=== PATIENT | female | born 1985 | race Caucasian/White ===

== ENCOUNTER 2016-05-16 20:24 | Emergency (ER) | payer OTHER ==
--- NOTE | 2016-05-16 21:38 | ED CLINICAL REPORT ---
Clinical Report - Physicians/Mid Levels [facility] [address] [place] [address] 05/16/2016 20:24 Patient: AMARIS WALKER [facility]#: [id number] Time Seen: 20:39; initial patient contact, initial documentation, patient care assumed. Historian- patient. HISTORY OF PRESENT ILLNESS Chief Complaint: PARESTHESIA. This started about 3 days ago and is still present. The patient has had new onset of localized numbness of the right face (mild) and left face (mild). No tingling, impaired speech or swallowing, visual disturbance or recent fall. No difficulty walking. (none). No dizziness, altered mental status, seizure or blackouts. Usually is alert and oriented X3 and has normal mobility. Similar symptoms previously: Frequently, as bad. ( states this started last year around July, and she hasn't had any issues in a few mos, was seeing neurologist, next appt is in may). Recent medical care: The patient was seen recently in the office. ( saw pcp 04/29, blood work and exam normal). REVIEW OF SYSTEMS No fever, headache, head injury, chest pain or difficulty breathing. No diarrhea or vomiting. All systems otherwise negative, except as recorded above. PAST HISTORY See nurses notes. ( PROBLEMS: Migraine Headache. Neurological Disease. Paresthesia. Tension-Type Headache. Headache. Atypical Chest Pain. Palpitations. Hyperventilation. ADHD - Attention Deficit Hyperactivity Disorder. Hypothyroidism. Fibromyalgia. Anxiety Reaction. --20:37 Sheriff John, R.N.). SOCIAL HISTORY Never smoker. Occasional alcohol use. No drug use. No recent travel. Is a local resident. FAMILY HISTORY Negative. ADDITIONAL NOTES The nursing notes have been reviewed with agreement regarding the chief complaint, HPI, ROS, PMH and patient medications and allergies. PHYSICAL EXAM Vital Signs: 05/16/2016 20:33 BP: 138/85. HR: 69. RR: 18. O2 saturation: 100%. Temp: 97.7 F. Pain level now: 8/10. Have been reviewed as normal and appear to be correct. Appearance: Alert. No acute distress. Head: Head atraumatic. Eyes: Pupils equal, round and reactive to light. ENT: Normal ENT inspection. Airway intact. Pharynx normal. Neck: Normal inspection. Neck supple. CVS: Normal heart rate and rhythm. Heart sounds normal. Pulses normal. Respiratory: No respiratory distress. Breath sounds normal. Back: Normal inspection. Skin: Skin warm and dry. Normal skin color. No rash. Normal skin turgor. Extremities: Extremities exhibit normal ROM. No lower extremity edema. Neuro: Alert. Oriented X 3. Mood/affect normal. Speech normal. Cranial nerves normal (as tested). No cerebellar findings. No motor deficit. No sensory deficit. Reflexes normal. LABS, X-RAYS, AND EKG Laboratory Tests: CBC w Diff: (PATRICK: 05/16/2016 21:10) ( [facility] Final results Test Result Flag Units (Reference) WHITE BLOOD COUNT 10.5 K/uL (4.5-11.5) RED BLOOD COUNT 4.76 M/uL (4.00-5.20) HEMOGLOBIN 12.8 gm/dL (12.0-16.0) HEMATOCRIT 38.9 % (36.0-46.0) MEAN CELL VOLUME 82 fL (80-100) MEAN CORPUSCULAR HGB 27 pg (26-34) MEAN CORPUSCULAR HGB CONC 33 g/dL (31-37) RED CELL DISTRIBUTION WIDTH 13.1 % (11.6-14.8) PLATELET COUNT 342 K/uL (150-400) NEUTROPHIL % 43.7 L % (50-75) LYMPH % 42.4 H % (25-40) MONO % 9.0 % (3-14) EOSINOPHIL % 3.1 % (0-4) BASOPHIL % 1.8 % (0-2) CMP: (PATRICK: 05/16/2016 21:10) ( MsgRcvd 05/16/2016 21:32) Final results Test Result Flag Units (Reference) GLUCOSE 89 mg/dL (70-110) BUN 13 mg/dL (7-18) CREATININE 0.8 mg/dL (0.6-1.3) Estimated GFR >60 mL/min Estimated GFR- >60 mL/min Note: Persistent reduction over 3 months in eGFR<60 mL/min/1.73 m2 defines CKD. Patients with eGFR values>=60 mL/min/1.73 m2 may also have CKD if evidence ofpersistent proteinuria. Additional information may be foundat www.kidney.org. SODIUM 135 L mmol/L (136-145) POTASSIUM 3.8 mmol/L (3.5-5.1) CHLORIDE 106 mmol/L (98-107) CARBON DIOXIDE 29 mmol/L (21-32) CALCIUM 8.6 mg/dL (8.5-10.1) TOTAL PROTEIN 7.3 g/dL (6.4-8.2) ALBUMIN 3.6 g/dL (3.3-5.0) BILIRUBIN, TOTAL 0.2 mg/dL (0.0-1.0) ALKALINE PHOSPHATASE 66 U/L (46-116) AST (SGOT) 19 U/L (15-37) ALT (SGPT) 35 U/L (12-78) . PROGRESS AND PROCEDURES Course of Care: 21:04 05/16/16. pt has refugio for some narcs, #8 er visits for non emergent issues and mental health issues including suicide ideations, see report for full details tx options discussed and pt would like to try some meds, maybe some steroids, and diuretic, since those meds might have helped last time. Patient counseled in person regarding the patient's stable condition, test results and diagnosis. 21:37. Differential Diagnosis: Other possible considerations: substance abuse, thyroid disease, trigeminal neuralgia, tia, brain tumor, cva, electrolyte imbalance. Above considerations are based on history, physical exam, reassessment and X-Ray data. Differential diagnosis was discussed with patient. Disposition: Discharged home in good and unchanged condition (21:38). Condition: good and stable. CLINICAL IMPRESSION Paresthesia INSTRUCTIONS Warnings: GENERAL WARNINGS: Return or contact your physician immediately if your condition worsens or changes unexpectedly, if not improving as expected, or if other problems arise. Specifically return if problem worsens. Prescription Medications: Medrol Dosepak: take according to package directions. Dispense one (1) dosepak. No refills. Substitution is permissible. HCTZ 25 mg: Take 1 orally every 24 hours. Dispense fifteen (15). No refills. Follow-up: Follow up with a neurologist as scheduled even if well. Reason for referral: or sooner if able. Summary of care provided to patient. Understanding of the discharge instructions verbalized by patient. (Electronically signed by Elvira Dillon A.R.N.P. 05/16/2016 23:30)
--- NOTE | 2016-05-16 21:38 | ED ORDER SUMMARY ---
..... Patient: AMARIS WALKER OrderSheet [facility] VisitID: [id number] [address] [place] [address] 30y, F Registration Date/Time: 05/16/2016 ORDER SHEET Weight: 61.2 kg (stated) Allergies: ADHESIVES, Penicillins GENERAL ORDERS: CBC w Diff Urgent (21:01 05/16/2016 HBivens A.R.N.P.) (Ack 21:03 IJurca ER Tech1) (Sent 21:09 IJurca ER Tech1) (5:08 JRomanelli R.N.) CMP Urgent (21:01 05/16/2016 HBivens A.R.N.P.) (Ack 21:03 IJurca ER Tech1) (Sent 21:09 IJurca ER Tech1) (5:08 JRomanelli R.N.) MEDICATION ORDERS: IV FLUIDS: ORDER SHEET NOTES: [Electronically signed by Elvira DillonR.N.P. (23:30 05/16/2016)] [Electronically signed by Andrew Olmedo R.N. (05:08 05/17/2016)] [Electronically locked/signed by Andrew Olmedo R.N. (05:08 05/17/2016)]
--- NOTE | 2016-05-16 21:38 | ED NURSING NOTES ---
Clinical Report - Nurses [place] [address] [place] [address] 05/16/2016 20:24 Patient: AMARIS WALKER TRIAGE Triage time 20:34. Chief Complaint: RIGHT EAR PAIN and LEFT EAR PAIN. --20:39 Sheriff Lopez R.N. 20:33 05/16/16. BP: 138/85. HR: 69. RR: 18. O2 saturation: 100%. Temp: 97.7 F. Pain level now: 10/08. --20:39 Sheriff Lopez R.N. 20:33 05/16/16. BP: 138/85. HR: 69. RR: 18. O2 saturation: 100%. Temp: 97.7 F. Pain level now: 10/08. --20:39 Sheriff Lopez R.N. Weight: 61.2 kg stated. Height/Length: 65 inches Per Patient. BMI: 22.5. --20:32 Sheriff Lopez R.N. Medications ClonazePAM Oral. Levothyroxine Sodium Oral. --20:36 Sheriff Lopez R.N. Omeprazole Oral 20 mg, daily. --20:36 Sheriff Lopez R.N. Allergies ADHESIVES. Penicillins. --20:36 Sheriff Lopez R.N. History Arrived by private vehicle. Historian: patient. Unaccompanied. Onset. (3 days ago). ( Facial numbness and bilateral eye pressures.). 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 PAST MEDICAL HX: Immunizations: up-to-date. SOCIAL HX: Smoker- current status unknown. Occasional alcohol use. No drug use. FALL RISK ASSESSMENT: Fall risk assessment completed. No fall risk identified. NUTRITIONAL RISK ASSESSMENT: The nutritional risk assessment revealed no deficiencies. FUNCTIONAL ASSESSMENT: Functional assessment: no impairments noted. LEARNING NEEDS ASSESSMENT: The learning needs assessment revealed no barriers. SKIN INTEGRITY ASSESSMENT: Skin integrity risk assessment completed. No skin integrity risk identified. --20:39 Sheriff Lpoez R.N. PROBLEMS: Migraine Headache. Neurological Disease. Paresthesia. Tension-Type Headache. Headache. Atypical Chest Pain. Palpitations. Hyperventilation. ADHD - Attention Deficit Hyperactivity Disorder. Hypothyroidism. Fibromyalgia. Anxiety Reaction. --20:37 Sheriff Lopez R.N. PHYSICAL ASSESSMENT GENERAL / NEURO / PSYCH: Alert. HEENT: No facial asymmetry noted. Right ear within normal limits. Left ear within normal limits. RESPIRATORY: Respirations not labored. CVS: Capillary refill less than 2 seconds. SKIN: Skin is warm and dry. --20:39 Sheriff Lopez R.N. Ambulatory to room. --20:39 Sheriff Lopez R.N. NURSING PROGRESS NOTES Head of bed elevated. Two patient identifiers checked. Call light placed in reach. Side rails up x 2. Bed placed in lowest position. Brakes of bed on. Patient ready for evaluation- chart flagged. --20:40 Sheriff Lopez R.N. DISPOSITION / DISCHARGE 21:45 05/16/16. BP: 117/71. HR: 77. RR: 16. O2 saturation: 100% on room air. Temp: 97.9 F (oral). Pain level now: 210. Additional comments: facial pain. --05:02 Andrew Olmedo R.N. Departure time: 0. --05:02 Andrew Olmedo R.N. 21:50. Condition at departure: improved. No learning barriers present. Discharge instructions provided and reviewed with the patient. Reviewed medication(s) (prescription given to pt). Reviewed referral to family practice. Patient verbalized understanding. Written instructions provided in Slovak. The patient was discharged by the physician. She was discharged home and unaccompanied at time of discharge. She left the Emergency Department ambulatory and via private vehicle. Patient driving. --05:07 Andrew Olmedo R.N. Locked/Released at 05/17/2016 5:08 by Andrew Olmedo R.N.
--- NOTE | 2016-05-16 21:38 | ED ORDER SUMMARY ---
..... Patient: AMARIS WALKER OrderSheet [facility] VisitID: [id number] [address] [place] [address] 30y, F Registration Date/Time: 05/16/2016 ORDER SHEET Weight: 61.2 kg (stated) Allergies: ADHESIVES, Penicillins GENERAL ORDERS: CBC w Diff Urgent (21:01 05/16/2016 HBivens A.R.N.P.) (Ack 21:03 IJurca ER Tech1) (Sent 21:09 IJurca ER Tech1) (5:08 JRomanelli R.N.) CMP Urgent (21:01 05/16/2016 HBivens A.R.N.P.) (Ack 21:03 IJurca ER Tech1) (Sent 21:09 IJurca ER Tech1) (5:08 JRomanelli R.N.) MEDICATION ORDERS: IV FLUIDS: ORDER SHEET NOTES: [Electronically signed by Elvira DillonR.N.P. (23:30 05/16/2016)] [Electronically signed by Andrew Olmedo R.N. (05:08 05/17/2016)] [Electronically locked/signed by Andrew Olmedo R.N. (05:08 05/17/2016)]
--- NOTE | 2016-05-16 21:38 | ED NURSING NOTES ---
Clinical Report - Nurses [place] [address] [place] [address] 05/16/2016 20:24 Patient: AMARIS WALKER TRIAGE Triage time 20:34. Chief Complaint: RIGHT EAR PAIN and LEFT EAR PAIN. --20:39 Sheriff Lopez R.N. 20:33 05/16/16. BP: 138/85. HR: 69. RR: 18. O2 saturation: 100%. Temp: 97.7 F. Pain level now: 10/08. --20:39 Sheriff Lopez R.N. 20:33 05/16/16. BP: 138/85. HR: 69. RR: 18. O2 saturation: 100%. Temp: 97.7 F. Pain level now: 10/08. --20:39 Sheriff Lopez R.N. Weight: 61.2 kg stated. Height/Length: 65 inches Per Patient. BMI: 22.5. --20:32 Sheriff Lopez R.N. Medications ClonazePAM Oral. Levothyroxine Sodium Oral. --20:36 Sheriff Lopez R.N. Omeprazole Oral 20 mg, daily. --20:36 Sheriff Lopez R.N. Allergies ADHESIVES. Penicillins. --20:36 Sheriff Lopez R.N. History Arrived by private vehicle. Historian: patient. Unaccompanied. Onset. (3 days ago). ( Facial numbness and bilateral eye pressures.). 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 PAST MEDICAL HX: Immunizations: up-to-date. SOCIAL HX: Smoker- current status unknown. Occasional alcohol use. No drug use. FALL RISK ASSESSMENT: Fall risk assessment completed. No fall risk identified. NUTRITIONAL RISK ASSESSMENT: The nutritional risk assessment revealed no deficiencies. FUNCTIONAL ASSESSMENT: Functional assessment: no impairments noted. LEARNING NEEDS ASSESSMENT: The learning needs assessment revealed no barriers. SKIN INTEGRITY ASSESSMENT: Skin integrity risk assessment completed. No skin integrity risk identified. --20:39 Sheriff Lopez R.N. PROBLEMS: Migraine Headache. Neurological Disease. Paresthesia. Tension-Type Headache. Headache. Atypical Chest Pain. Palpitations. Hyperventilation. ADHD - Attention Deficit Hyperactivity Disorder. Hypothyroidism. Fibromyalgia. Anxiety Reaction. --20:37 Sheriff Lopez R.N. PHYSICAL ASSESSMENT GENERAL / NEURO / PSYCH: Alert. HEENT: No facial asymmetry noted. Right ear within normal limits. Left ear within normal limits. RESPIRATORY: Respirations not labored. CVS: Capillary refill less than 2 seconds. SKIN: Skin is warm and dry. --20:39 Sheriff Lopez R.N. Ambulatory to room. --20:39 Sheriff Lopez R.N. NURSING PROGRESS NOTES Head of bed elevated. Two patient identifiers checked. Call light placed in reach. Side rails up x 2. Bed placed in lowest position. Brakes of bed on. Patient ready for evaluation- chart flagged. --20:40 Sheriff Lopez R.N. DISPOSITION / DISCHARGE 21:45 05/16/16. BP: 117/71. HR: 77. RR: 16. O2 saturation: 100% on room air. Temp: 97.9 F (oral). Pain level now: 210. Additional comments: facial pain. --05:02 Andrew Olmedo R.N. Departure time: 0. --05:02 Andrew Olmedo R.N. 21:50. Condition at departure: improved. No learning barriers present. Discharge instructions provided and reviewed with the patient. Reviewed medication(s) (prescription given to pt). Reviewed referral to family practice. Patient verbalized understanding. Written instructions provided in Icelandic. The patient was discharged by the physician. She was discharged home and unaccompanied at time of discharge. She left the Emergency Department ambulatory and via private vehicle. Patient driving. --05:07 Andrew Olmedo R.N. Locked/Released at 05/17/2016 5:08 by Andrew Olmedo R.N.
--- NOTE | 2016-05-17 05:08 | ED DISCHARGE INSTRUCTIONS ---
Patient: AMARIS WALKER General Instructions [facility] VisitID: [id number] [address] [place] [address] 30y, F Registration Date/Time: 05/16/2016 Paresthesia INSTRUCTIONS Warnings: GENERAL WARNINGS: Return or contact your physician immediately if your condition worsens or changes unexpectedly, if not improving as expected, or if other problems arise. Specifically return if problem worsens. Prescription Medications: Medrol Dosepak: take according to package directions. Dispense one (1) dosepak. No refills. Substitution is permissible. HCTZ 25 mg: Take 1 orally every 24 hours. Dispense fifteen (15). No refills. Follow-up: Follow up with a neurologist as scheduled even if well. Reason for referral: or sooner if able. Summary of care provided to patient. Understanding of the discharge instructions verbalized by patient. ADDITIONAL INFORMATION Paraesthesias Paraesthesia refers to a burning or prickling sensation that is sometimes felt in the hands, arms, legs or feet. It can also occur in other parts of the body. It can also feel like tingling or numbness, skin crawling or itching.The sensation is usually painless. Most people have experienced pins and needles. This feeling happens when legs have been crossed for too long and pressure is placed on a nerve. This is a temporary paraesthesia. It quickly goes away once the pressure is relieved. There are many possible causes for chronic paraesthesias. These include such disorders as stroke, herniated disk (pressing on a nerve), trapped nerve in the shoulder, elbow or wrist (such as carpal tunnel syndrome), vitamin deficiencies or even certain medicines. Laboratory tests are needed to make an accurate diagnosis. These tests may include blood tests, X-ray, CT (computerized tomography) scan or a muscle test (electromyography).Depending on the cause, treatment may include physical therapy. Home Care: Do not make any changes to your medicines without advice from your doctor. If vitamins have been prescribed, remember to take them daily at the recommended dose. Because of a decrease in feeling, a numb hand or foot may be more prone to injury. Take care to protect these areas from cuts, bumps, bruises, aguayo or other injury. Keep your nails trimmed and wash your hands and feet often. Wear shoes that fit well to avoid pressure points, blisters and ulcers. Look at your hands and feet carefully (including the soles of your feet and between your toes) at least once a week and notify your doctor of any open wounds or signs of infection. Follow Up with your doctor or as advised by our staff. You may need further testing to determine the exact cause of your paraesthesia. [NOTE: If blood tests, X-ray, CT scan or electromyography were done, specialists will review them. You will be notified of any new findings that may affect your care.] Get Prompt Medical Attention if any of the following occur: Numbness or weakness of the face, one arm or one leg Slurred speech, confusion, trouble speaking, walking or seeing Severe headache, fainting spell, dizziness or seizure Chest, arm, neck or upper back pain Loss of bladder or bowel control Open wound with redness, swelling or pus Methylprednisolone Oral tablet What is this medicine? METHYLPREDNISOLONE (meth ill pred NISS oh lone) is a corticosteroid. It is commonly used to treat inflammation of the skin, joints, lungs, and other organs. Common conditions treated include asthma, allergies, and arthritis. It is also used for other conditions, such as blood disorders and diseases of the adrenal glands. How should I use this medicine? Take this medicine by mouth with a drink of water. Follow the directions on the prescription label. Take it with food or milk to avoid stomach upset. If you are taking this medicine once a day, take it in the morning. Do not take more medicine than you are told to take. Do not suddenly stop taking your medicine because you may develop a severe reaction. Your doctor will tell you how much medicine to take. If your doctor wants you to stop the medicine, the dose may be slowly lowered over time to avoid any side effects. Talk to your databases software consultant regarding the use of this medicine in children. Special care may be needed. What side effects may I notice from receiving this medicine? Side effects that you should report to your doctor or health day care assistant as soon as possible: allergic reactions like skin rash, itching or hives, swelling of the face, lips, or tongue eye pain, decreased or blurred vision, or bulging eyes fever, sore throat, sneezing, cough, or other signs of infection, wounds that will not heal increased thirst mental depression, mood swings, mistaken feelings of self importance or of being mistreated pain in hips, back, ribs, arms, shoulders, or legs swelling of the ankles, feet, hands trouble passing urine or change in the amount of urine Side effects that usually do not require medical attention (report to your doctor or health day care assistant if they continue or are bothersome): confusion, excitement, restlessness headache nausea, vomiting skin problems, acne, thin and shiny skin weight gain What may interact with this medicine? Do not take this medicine with any of the following medications: mifepristone This medicine may also interact with the following medications: tacrolimus vaccines warfarin What if I miss a dose? If you miss a dose, take it as soon as you can. If it is almost time for your next dose, talk to your doctor or health day care assistant. You may need to miss a dose or take an extra dose. Do not take double or extra doses without advice. Where should I keep my medicine? Keep out of the reach of children. Store at room temperature between 20 and 25 degrees C (68 and 77 degrees F). Throw away any unused medicine after the expiration date. What should I tell my health care provider before I take this medicine? They need to know if you have any of these conditions: [place] syndrome diabetes glaucoma heart problems or disease high blood pressure infection such as herpes, measles, tuberculosis, or chickenpox kidney disease liver disease mental problems myasthenia gravis osteoporosis seizures stomach ulcer or intestine disease including colitis and diverticulitis thyroid problem an unusual or allergic reaction to lactose, methylprednisolone, other medicines, foods, dyes, or preservatives or trying to get breast-feeding What should I watch for while using this medicine? Visit your doctor or health day care assistant for regular checks on your progress. If you are taking this medicine for a long time, carry an identification card with your name and address, the type and dose of your medicine, and your doctor's name and address. The medicine may increase your risk of getting an infection. Stay away from people who are sick. Tell your doctor or health day care assistant if you are around anyone with measles or chickenpox. If you are going to have surgery, tell your doctor or health day care assistant that you have taken this medicine within the last twelve months. Ask your doctor or health day care assistant about your diet. You may need to lower the amount of salt you eat. The medicine can increase your blood sugar. If you are a diabetic check with your doctor if you need help adjusting the dose of your diabetic medicine. Hydrochlorothiazide Oral tablet What is this medicine? HYDROCHLOROTHIAZIDE (kim droe klor oh THYE a zide) is a diuretic. It increases the amount of urine passed, which causes the body to lose salt and water. This medicine is used to treat high blood pressure. It is also reduces the swelling and water retention caused by various medical conditions, such as heart, liver, or kidney disease. How should I use this medicine? Take this medicine by mouth with a glass of water. Follow the directions on the prescription label. Take your medicine at regular intervals. Remember that you will need to pass urine frequently after taking this medicine. Do not take your doses at a time of day that will cause you problems. Do not stop taking your medicine unless your doctor tells you to. Talk to your databases software consultant regarding the use of this medicine in children. Special care may be needed. What side effects may I notice from receiving this medicine? Side effects that you should report to your doctor or health day care assistant as soon as possible: allergic reactions such as skin rash or itching, hives, swelling of the lips, mouth, tongue, or throat changes in vision chest pain eye pain fast or irregular heartbeat feeling faint or lightheaded, falls gout attack muscle pain or cramps pain or difficulty when passing urine pain, tingling, numbness in the hands or feet redness, blistering, peeling or loosening of the skin, including inside the mouth unusually weak or tired Side effects that usually do not require medical attention (report to your doctor or health day care assistant if they continue or are bothersome): change in sex drive or performance dry mouth headache stomach upset What may interact with this medicine? cholestyramine colestipol digoxin dofetilide lithium medicines for blood pressure medicines for diabetes medicines that relax muscles for surgery other diuretics steroid medicines like prednisone or cortisone What if I miss a dose? If you miss a dose, take it as soon as you can. If it is almost time for your next dose, take only that dose. Do not take double or extra doses. Where should I keep my medicine? Keep out of the reach of children. Store at room temperature between 15 and 30 degrees C (59 and 86 degrees F). Do not freeze. Protect from light and moisture. Keep container closed tightly. Throw away any unused medicine after the expiration date. What should I tell my health care provider before I take this medicine? They need to know if you have any of these conditions: diabetes gout immune system problems, like lupus kidney disease or kidney stones liver disease pancreatitis small amount of urine or difficulty passing urine an unusual or allergic reaction to hydrochlorothiazide, sulfa drugs, other medicines, foods, dyes, or preservatives or trying to get breast-feeding What should I watch for while using this medicine? Visit your doctor or health day care assistant for regular checks on your progress. Check your blood pressure as directed. Ask your doctor or health day care assistant what your blood pressure should be and when you should contact him or her. You may need to be on a special diet while taking this medicine. Ask your doctor. Check with your doctor or health day care assistant if you get an attack of severe diarrhea, nausea and vomiting, or if you sweat a lot. The loss of too much body fluid can make it dangerous for you to take this medicine. You may get drowsy or dizzy. Do not drive, use machinery, or do anything that needs mental alertness until you know how this medicine affects you. Do not stand or sit up quickly, especially if you are an older patient. This reduces the risk of dizzy or fainting spells. Alcohol may interfere with the effect of this medicine. Avoid alcoholic drinks. This medicine may affect your blood sugar level. If you have diabetes, check with your doctor or health day care assistant before changing the dose of your diabetic medicine. This medicine can make you more sensitive to the sun. Keep out of the sun. If you cannot avoid being in the sun, wear protective clothing and use sunscreen. Do not use sun lamps or tanning beds/booths. You have been given the following additional information: Paraesthesias Methylprednisolone Oral tablet Hydrochlorothiazide Oral tablet (Electronically signed by Elvira Dillon A.R.N.P. 05/16/2016 23:30)
--- NOTE | 2016-05-17 05:08 | ED DISCHARGE INSTRUCTIONS ---
Patient: AMARIS WALKER General Instructions [facility] VisitID: [id number] [address] [place] [address] 30y, F Registration Date/Time: 05/16/2016 Paresthesia INSTRUCTIONS Warnings: GENERAL WARNINGS: Return or contact your physician immediately if your condition worsens or changes unexpectedly, if not improving as expected, or if other problems arise. Specifically return if problem worsens. Prescription Medications: Medrol Dosepak: take according to package directions. Dispense one (1) dosepak. No refills. Substitution is permissible. HCTZ 25 mg: Take 1 orally every 24 hours. Dispense fifteen (15). No refills. Follow-up: Follow up with a neurologist as scheduled even if well. Reason for referral: or sooner if able. Summary of care provided to patient. Understanding of the discharge instructions verbalized by patient. ADDITIONAL INFORMATION Paraesthesias Paraesthesia refers to a burning or prickling sensation that is sometimes felt in the hands, arms, legs or feet. It can also occur in other parts of the body. It can also feel like tingling or numbness, skin crawling or itching.The sensation is usually painless. Most people have experienced pins and needles. This feeling happens when legs have been crossed for too long and pressure is placed on a nerve. This is a temporary paraesthesia. It quickly goes away once the pressure is relieved. There are many possible causes for chronic paraesthesias. These include such disorders as stroke, herniated disk (pressing on a nerve), trapped nerve in the shoulder, elbow or wrist (such as carpal tunnel syndrome), vitamin deficiencies or even certain medicines. Laboratory tests are needed to make an accurate diagnosis. These tests may include blood tests, X-ray, CT (computerized tomography) scan or a muscle test (electromyography).Depending on the cause, treatment may include physical therapy. Home Care: Do not make any changes to your medicines without advice from your doctor. If vitamins have been prescribed, remember to take them daily at the recommended dose. Because of a decrease in feeling, a numb hand or foot may be more prone to injury. Take care to protect these areas from cuts, bumps, bruises, aguayo or other injury. Keep your nails trimmed and wash your hands and feet often. Wear shoes that fit well to avoid pressure points, blisters and ulcers. Look at your hands and feet carefully (including the soles of your feet and between your toes) at least once a week and notify your doctor of any open wounds or signs of infection. Follow Up with your doctor or as advised by our staff. You may need further testing to determine the exact cause of your paraesthesia. [NOTE: If blood tests, X-ray, CT scan or electromyography were done, specialists will review them. You will be notified of any new findings that may affect your care.] Get Prompt Medical Attention if any of the following occur: Numbness or weakness of the face, one arm or one leg Slurred speech, confusion, trouble speaking, walking or seeing Severe headache, fainting spell, dizziness or seizure Chest, arm, neck or upper back pain Loss of bladder or bowel control Open wound with redness, swelling or pus Methylprednisolone Oral tablet What is this medicine? METHYLPREDNISOLONE (meth ill pred NISS oh lone) is a corticosteroid. It is commonly used to treat inflammation of the skin, joints, lungs, and other organs. Common conditions treated include asthma, allergies, and arthritis. It is also used for other conditions, such as blood disorders and diseases of the adrenal glands. How should I use this medicine? Take this medicine by mouth with a drink of water. Follow the directions on the prescription label. Take it with food or milk to avoid stomach upset. If you are taking this medicine once a day, take it in the morning. Do not take more medicine than you are told to take. Do not suddenly stop taking your medicine because you may develop a severe reaction. Your doctor will tell you how much medicine to take. If your doctor wants you to stop the medicine, the dose may be slowly lowered over time to avoid any side effects. Talk to your auto locator regarding the use of this medicine in children. Special care may be needed. What side effects may I notice from receiving this medicine? Side effects that you should report to your doctor or health rn complex care as soon as possible: allergic reactions like skin rash, itching or hives, swelling of the face, lips, or tongue eye pain, decreased or blurred vision, or bulging eyes fever, sore throat, sneezing, cough, or other signs of infection, wounds that will not heal increased thirst mental depression, mood swings, mistaken feelings of self importance or of being mistreated pain in hips, back, ribs, arms, shoulders, or legs swelling of the ankles, feet, hands trouble passing urine or change in the amount of urine Side effects that usually do not require medical attention (report to your doctor or health rn complex care if they continue or are bothersome): confusion, excitement, restlessness headache nausea, vomiting skin problems, acne, thin and shiny skin weight gain What may interact with this medicine? Do not take this medicine with any of the following medications: mifepristone This medicine may also interact with the following medications: tacrolimus vaccines warfarin What if I miss a dose? If you miss a dose, take it as soon as you can. If it is almost time for your next dose, talk to your doctor or health rn complex care. You may need to miss a dose or take an extra dose. Do not take double or extra doses without advice. Where should I keep my medicine? Keep out of the reach of children. Store at room temperature between 20 and 25 degrees C (68 and 77 degrees F). Throw away any unused medicine after the expiration date. What should I tell my health care provider before I take this medicine? They need to know if you have any of these conditions: [place]'s syndrome diabetes glaucoma heart problems or disease high blood pressure infection such as herpes, measles, tuberculosis, or chickenpox kidney disease liver disease mental problems myasthenia gravis osteoporosis seizures stomach ulcer or intestine disease including colitis and diverticulitis thyroid problem an unusual or allergic reaction to lactose, methylprednisolone, other medicines, foods, dyes, or preservatives or trying to get breast-feeding What should I watch for while using this medicine? Visit your doctor or health rn complex care for regular checks on your progress. If you are taking this medicine for a long time, carry an identification card with your name and address, the type and dose of your medicine, and your doctor's name and address. The medicine may increase your risk of getting an infection. Stay away from people who are sick. Tell your doctor or health rn complex care if you are around anyone with measles or chickenpox. If you are going to have surgery, tell your doctor or health rn complex care that you have taken this medicine within the last twelve months. Ask your doctor or health rn complex care about your diet. You may need to lower the amount of salt you eat. The medicine can increase your blood sugar. If you are a diabetic check with your doctor if you need help adjusting the dose of your diabetic medicine. Hydrochlorothiazide Oral tablet What is this medicine? HYDROCHLOROTHIAZIDE (kim droe klor oh THYE a zide) is a diuretic. It increases the amount of urine passed, which causes the body to lose salt and water. This medicine is used to treat high blood pressure. It is also reduces the swelling and water retention caused by various medical conditions, such as heart, liver, or kidney disease. How should I use this medicine? Take this medicine by mouth with a glass of water. Follow the directions on the prescription label. Take your medicine at regular intervals. Remember that you will need to pass urine frequently after taking this medicine. Do not take your doses at a time of day that will cause you problems. Do not stop taking your medicine unless your doctor tells you to. Talk to your auto locator regarding the use of this medicine in children. Special care may be needed. What side effects may I notice from receiving this medicine? Side effects that you should report to your doctor or health rn complex care as soon as possible: allergic reactions such as skin rash or itching, hives, swelling of the lips, mouth, tongue, or throat changes in vision chest pain eye pain fast or irregular heartbeat feeling faint or lightheaded, falls gout attack muscle pain or cramps pain or difficulty when passing urine pain, tingling, numbness in the hands or feet redness, blistering, peeling or loosening of the skin, including inside the mouth unusually weak or tired Side effects that usually do not require medical attention (report to your doctor or health rn complex care if they continue or are bothersome): change in sex drive or performance dry mouth headache stomach upset What may interact with this medicine? cholestyramine colestipol digoxin dofetilide lithium medicines for blood pressure medicines for diabetes medicines that relax muscles for surgery other diuretics steroid medicines like prednisone or cortisone What if I miss a dose? If you miss a dose, take it as soon as you can. If it is almost time for your next dose, take only that dose. Do not take double or extra doses. Where should I keep my medicine? Keep out of the reach of children. Store at room temperature between 15 and 30 degrees C (59 and 86 degrees F). Do not freeze. Protect from light and moisture. Keep container closed tightly. Throw away any unused medicine after the expiration date. What should I tell my health care provider before I take this medicine? They need to know if you have any of these conditions: diabetes gout immune system problems, like lupus kidney disease or kidney stones liver disease pancreatitis small amount of urine or difficulty passing urine an unusual or allergic reaction to hydrochlorothiazide, sulfa drugs, other medicines, foods, dyes, or preservatives or trying to get breast-feeding What should I watch for while using this medicine? Visit your doctor or health rn complex care for regular checks on your progress. Check your blood pressure as directed. Ask your doctor or health rn complex care what your blood pressure should be and when you should contact him or her. You may need to be on a special diet while taking this medicine. Ask your doctor. Check with your doctor or health rn complex care if you get an attack of severe diarrhea, nausea and vomiting, or if you sweat a lot. The loss of too much body fluid can make it dangerous for you to take this medicine. You may get drowsy or dizzy. Do not drive, use machinery, or do anything that needs mental alertness until you know how this medicine affects you. Do not stand or sit up quickly, especially if you are an older patient. This reduces the risk of dizzy or fainting spells. Alcohol may interfere with the effect of this medicine. Avoid alcoholic drinks. This medicine may affect your blood sugar level. If you have diabetes, check with your doctor or health rn complex care before changing the dose of your diabetic medicine. This medicine can make you more sensitive to the sun. Keep out of the sun. If you cannot avoid being in the sun, wear protective clothing and use sunscreen. Do not use sun lamps or tanning beds/booths. You have been given the following additional information: Paraesthesias Methylprednisolone Oral tablet Hydrochlorothiazide Oral tablet (Electronically signed by Elvira Dillon A.R.N.P. 05/16/2016 23:30)
--- NOTE | 2016-05-17 05:08 | ED MED RECONCILIATION SUMMARY ---
Patient: AMARIS WALKER Medication Reconciliation Report [facility] VisitID: [id number] [address] [place] [address] 30y, F Registration Date/Time: 05/16/2016 Weight: 61.2 kg Height/Length: 65 in. BMI: 22.5 ALLERGIES: ADHESIVES, Penicillins The patient's Home Medications are listed below: THE FOLLOWING MEDICATIONS NEED TO BE RECONCILED: ClonazePAM Oral Levothyroxine Sodium Oral Omeprazole Oral 20 mg, daily The source(s) of the original Home Medication information: Not obtained. The following Medications were given to the patient in the Emergency Department: None. The following Medications were prescribed to the patient: Medrol Dosepak: take according to package directions. Dispense one (1) dosepak. No refills. Substitution is permissible. -- Elvira Dillon A.R.N.P. HCTZ 25 mg: Take 1 orally every 24 hours. Dispense fifteen (15). No refills. -- Elvira Dillon A.R.N.P.
--- NOTE | 2016-05-17 05:08 | ED MAR SUMMARY ---
..... Medication Administration Record [facility] [address] [place], [place] [id number] Patient: AMARIS WALKER Visit ID: [id number] 30y, F Weight: 61.2 kg Height/Length: 65 in BMI: 22.5 ALLERGIES: ADHESIVES, Penicillins
--- NOTE | 2016-05-17 05:08 | ED MED RECONCILIATION SUMMARY ---
Patient: AMARIS WALKER Medication Reconciliation Report [facility] VisitID: [id number] [address] [place] [address] 30y, F Registration Date/Time: 05/16/2016 Weight: 61.2 kg Height/Length: 65 in. BMI: 22.5 ALLERGIES: ADHESIVES, Penicillins The patient's Home Medications are listed below: THE FOLLOWING MEDICATIONS NEED TO BE RECONCILED: ClonazePAM Oral Levothyroxine Sodium Oral Omeprazole Oral 20 mg, daily The source(s) of the original Home Medication information: Not obtained. The following Medications were given to the patient in the Emergency Department: None. The following Medications were prescribed to the patient: Medrol Dosepak: take according to package directions. Dispense one (1) dosepak. No refills. Substitution is permissible. -- Elvira Dillon A.R.N.P. HCTZ 25 mg: Take 1 orally every 24 hours. Dispense fifteen (15). No refills. -- Elvira Dillon A.R.N.P.
--- NOTE | 2016-05-17 05:08 | ED MAR SUMMARY ---
..... Medication Administration Record [facility] [address] [place], [place] [id number] Patient: AMARIS WALKER Visit ID: [id number] 30y, F Weight: 61.2 kg Height/Length: 65 in BMI: 22.5 ALLERGIES: ADHESIVES, Penicillins
== END 2016-05-16 21:50 | disposition home or self-care (01) ==
LOC: ED SRH 20:24
DX: R20.2 Paresthesia of skin (principal); Z88.0 Allergy status to penicillin
CPT/HCPCS: 90074; 90100; 95059

== ENCOUNTER 2016-07-11 02:41 | Emergency (ER) | payer OTHER ==
--- NOTE | 2016-07-11 05:20 | ED ORDER SUMMARY ---
..... Patient: AMARIS WALKER OrderSheet [facility] VisitID: [id number] [address] [place] [address] 31y, F Registration Date/Time: 07/11/2016 ORDER SHEET Weight: 100.2 kg (stated) Allergies: ADHESIVES, Penicillins GENERAL ORDERS: CBC w Diff Urgent (03:40 07/11/2016 Michelle Bernstein) (Ack 3:42 GLOG ER Cottage Parent) (4:03 DDavis R.N.) CMP Urgent (03:40 07/11/2016 Michelle Bernstein) (Ack 3:42 [place] ER [facility]) (4:04 DDavis R.N.) MEDICATION ORDERS: GI Cocktail WHITE PO 30 mL (NOW) (03:40 07/11/2016 Michelle Bernstein) (Ack 3:41 HKone R.N.) (4:04 DDavis R.N.) Toradol IM 60 mg (NOW) (04:34 07/11/2016 Michelle Bernstein) (4:49 DDavis R.N.) IV FLUIDS: ORDER SHEET NOTES: [Electronically signed by Ben Leiva R.N. (05:54 07/11/2016)] [Electronically signed by aNhun Velasco Dr. (05:42 07/13/2016)] [Electronically locked/signed by Ben Leiva R.N. (05:54 07/11/2016)]
--- NOTE | 2016-07-11 05:20 | ED CLINICAL REPORT ---
Clinical Report - Physicians/Mid Levels [facility] [address] [place] [address] 07/11/2016 2:42 Patient: AMARIS WALKER Time Seen: 0325; initial patient contact. Arrived- By private vehicle. Historian- patient. HISTORY OF PRESENT ILLNESS Chief Complaint: NECK PAIN. Onset was today and it is still present (unchanged). It was gradual in onset and has been constant but is not gone now. Modifying factors- worsened by neck flexion. Not relieved by anything. It is described as being severe and in the area of the right side of the cervical spine. The quality is noted to be sharp. No radiation. No bladder dysfunction, bowel dysfunction, sensory loss or motor loss. Additional history - reports no fever, headache, saddle anesthesia, urinary retention, or trauma. does report tingling to the face on the right side. no facial droop or weakness. speech has been normal. Patient denies an injury but injury to the head or chest. No other injury. Similar symptoms previously: None. Recent medical care: Not recently seen/assessed. REVIEW OF SYSTEMS No fever, abdominal pain, nausea, vomiting or diarrhea. No black stools or bloody stools. All systems otherwise negative, except as recorded above. PAST HISTORY See nurses notes. Additional Surgeries: no known surgeries. Medications: Ranitidine HCl Oral. ClonazePAM Oral. Levothyroxine Sodium Oral. Omeprazole Oral 20 mg, daily. Allergies: ADHESIVES. Penicillins. SOCIAL HISTORY Never smoker. No alcohol use or drug use. No recent travel. Is a local resident. ADDITIONAL NOTES The nursing notes have been reviewed. PHYSICAL EXAM Vital Signs: 07/11/2016 03:20 BP: 119/67. HR: 85. RR: 18. O2 saturation: 100%. Temp: 97.7 F. Pain level now: 10/10. Blood pressure normal. Oxygen saturation normal. Appearance: Alert. No acute distress. HEENT: Normal external inspection. Eyes: Pupils equal, round and reactive to light. ENT: Ears normal. Pharynx normal. Neck: Normal inspection. No vertebral tenderness. Mild soft tissue tenderness in the right mid neck area. No meningeal signs. (no overlying skin changes. no crepitus.). CVS: Normal heart rate and rhythm. Heart sounds normal. Pulses normal. Respiratory: No respiratory distress. Breath sounds normal. Chest nontender. No rales, rhonchi or wheezes. Abdomen: Normal inspection. Soft and nontender. Bowel sounds normal. No mass. Back: Normal inspection. No tenderness. Painless ROM. Skin: Skin warm and dry. Normal skin color. No rash. Normal skin turgor. Extremities: Extremities exhibit normal ROM. Extremities nontender. Neuro: Oriented X 3. Mood/affect normal. No motor deficit. No sensory deficit. Reflexes normal. LABS, X-RAYS, AND EKG Laboratory Tests: CBC w Diff: (PATRICK: 07/11/2016 04:00) ( [facility] 07/11/2016 04:31) Final results Test Result Flag Units (Reference) WHITE BLOOD COUNT 11.2 K/uL (4.5-11.5) RED BLOOD COUNT 4.77 M/uL (4.00-5.20) HEMOGLOBIN 12.7 gm/dL (12.0-16.0) HEMATOCRIT 38.4 % (36.0-46.0) MEAN CELL VOLUME 81 fL (80-100) MEAN CORPUSCULAR HGB 27 pg (26-34) MEAN CORPUSCULAR HGB CONC 33 g/dL (31-37) RED CELL DISTRIBUTION WIDTH 13.1 % (11.6-14.8) PLATELET COUNT 354 K/uL (150-400) NEUTROPHIL % 53.9 % (50-75) LYMPH % 32.6 % (25-40) MONO % 9.9 % (3-14) EOSINOPHIL % 3.3 % (0-4) BASOPHIL % 0.3 % (0-2) CMP: (PATRICK: 07/11/2016 04:00) ( MsgRcvd 07/11/2016 04:58) Final results Test Result Flag Units (Reference) GLUCOSE 98 mg/dL (70-110) BUN 16 mg/dL (7-18) CREATININE 0.8 mg/dL (0.6-1.3) Estimated GFR >60 mL/min Estimated GFR- >60 mL/min Note: Persistent reduction over 3 months in eGFR<60 mL/min/1.73 m2 defines CKD. Patients with eGFR values>=60 mL/min/1.73 m2 may also have CKD if evidence ofpersistent proteinuria. Additional information may be foundat www.kidney.org. SODIUM 143 mmol/L (136-145) POTASSIUM 3.5 mmol/L (3.5-5.1) CHLORIDE 106 mmol/L (98-107) CARBON DIOXIDE 23 mmol/L (21-32) CALCIUM 8.6 mg/dL (8.5-10.1) TOTAL PROTEIN 7.6 g/dL (6.4-8.2) ALBUMIN 3.6 g/dL (3.3-5.0) BILIRUBIN, TOTAL 0.2 mg/dL (0.0-1.0) ALKALINE PHOSPHATASE 73 U/L (46-116) AST (SGOT) 27 U/L (15-37) ALT (SGPT) 33 U/L (12-78) . PROGRESS AND PROCEDURES Course of Care: The patient is a pleasant 31-year-old female with past medical history significant for esophageal reflux presented for evaluation of right-sided neck pain. Patient is also reporting some tingling to the right side of face. At this time mostly diagnosis would be referred pain from the patient's reflux. Patient will be valid for the tingling in the face with electrolytes. No concern for CVA at this time. Patient is appropriate and without any focal neurological deficits. No facial droop noted. No tongue deviation. Patient is agreeable to the treatment and plan. Patient was reevaluated after the medications of been given. Laboratory studies are also unremarkable and patient was updated about these. Patient continues to be neurovascularly intact. Pain had significantly improved while here in the emergency department with the treatment. Because of the patient's improved symptomatology, negative workup, and nonfocal neurological examination, do not fill patient is admitted to the hospital require further emergency department workup/evaluation. Discussed with the patient workup. Emergency department including diagnosis, home care, follow-up, and return precautions. All questions have been answered. The patient expressed understanding of these instructions and was agreeable to them. Disposition: Discharged. Condition: good. CLINICAL IMPRESSION Acute neck pain. 07/11/2016 03:20 BP: 119/67. HR: 85. RR: 18. O2 saturation: 100%. Temp: 97.7 F. Pain level now: 10/10. Blood pressure normal. Oxygen saturation normal. INSTRUCTIONS Warnings: GENERAL WARNINGS: Return or contact your physician immediately if your condition worsens or changes unexpectedly, if not improving as expected, or if other problems arise. SPECIFICALLY, return if you develop weakness, numbness, tingling, pain or incontinence. fever. Your Current Medications: CONTINUE TAKING THE FOLLOWING MEDICATIONS: ClonazePAM Oral. Levothyroxine Sodium Oral. Omeprazole Oral : 20 mg daily. Ranitidine HCl Oral. Prescription Medications: Flexeril 10 mg: take 1 orally every 8 hours as needed for muscle spasm or pain. Dispense twenty (20). No refills. Substitution is permissible. Follow-up: Return to the emergency department as needed. Follow up with your doctor in three days. Reason for referral: recheck today's concerns. Summary of care provided to patient via paper. Screening today revealed the patient's blood pressure to be in the normal range. The patient should follow up with a primary care provider for blood pressure management. Understanding of the discharge instructions verbalized by patient. (Electronically signed by Nahun Velasco Dr. 07/13/2016 5:42)
--- NOTE | 2016-07-11 05:20 | ED ORDER SUMMARY ---
..... Patient: AMARIS WALKER OrderSheet [facility] VisitID: [id number] [address] [place] [address] 31y, F Registration Date/Time: 07/11/2016 ORDER SHEET Weight: 100.2 kg (stated) Allergies: ADHESIVES, Penicillins GENERAL ORDERS: CBC w Diff Urgent (03:40 07/11/2016 Michelle Bernstein) (Ack 3:42 CarFin ER Laserist) (4:03 DDavis R.N.) CMP Urgent (03:40 07/11/2016 Michelle Bernstein) (Ack 3:42 CHagPhotodigm ER Laserist) (4:04 DDavis R.N.) MEDICATION ORDERS: GI Cocktail WHITE PO 30 mL (NOW) (03:40 07/11/2016 Michelle Bernstein) (Ack 3:41 HKone R.N.) (4:04 DDavis R.N.) Toradol IM 60 mg (NOW) (04:34 07/11/2016 Michelle Bernstein) (4:49 DDavis R.N.) IV FLUIDS: ORDER SHEET NOTES: [Electronically signed by Ben Leiva R.N. (05:54 07/11/2016)] [Electronically signed by Nahun Velasco Dr. (05:42 07/13/2016)] [Electronically locked/signed by Ben Leiva R.N. (05:54 07/11/2016)]
--- NOTE | 2016-07-11 05:20 | ED NURSING NOTES ---
Clinical Report - Nurses [facility] [address] [place] [address] 07/11/2016 2:42 Patient: AMARIS WALKER TRIAGE Triage time 03:20. Acuity: LEVEL 3. Chief Complaint: (neck tightness and GERD). Alert. ROSALINDA COMA SCORE: Rosalinda Coma Scale: 15- eyes open spontaneously (4); best verbal response- oriented x 4 (5); best motor response- obeys commands (6). --03:27 Ben Leiva R.N. 03:20 07/11/16. BP: 119/67. HR: 85. RR: 18. O2 saturation: 100% on room air. Temp: 97.7 F (oral). Pain level now: 12/08. --03:27 Ben Leiva R.N. Weight: 100.2 kg stated. Height/Length: 63 inches Per Patient. BMI: 39.1. --03:20 Ben Leiva R.N. Medications ClonazePAM Oral. Levothyroxine Sodium Oral. Omeprazole Oral 20 mg, daily. --03:21 Ben Leiva R.N. Ranitidine HCl Oral. --03:22 Ben Leiva R.N. Allergies ADHESIVES. Penicillins. --03:21 Ben Leiva R.N. History Arrived by private vehicle, and unaccompanied. This started today. ( pt states that she has had difficulty sleeping related to chief complaint > 1 week, but states problem has been worse tonight and yesterday.). PAST MEDICAL HX: ( denies ). SOCIAL HX: Never smoker. Occasional alcohol use. No drug use. ( denies hi/si, states that she feels safe at home.). --03:27 Ben Leiva R.N. PROBLEMS: Migraine Headache. Neurological Disease. Paresthesia. Tension-Type Headache. Headache. Atypical Chest Pain. Palpitations. Hyperventilation. ADHD - Attention Deficit Hyperactivity Disorder. Hypothyroidism. Fibromyalgia. Anxiety Reaction. --03:21 Ben Leiva R.N. ADDITIONAL SURGERIES: no known surgeries. Interventions ID band on patient. To treatment room. --03:27 Ben Leiva R.N. PHYSICAL ASSESSMENT Ambulatory to room. GENERAL / NEURO / PSYCH: Alert. Oriented X 4. Appears anxious. HEENT: No facial asymmetry noted. ( no facial asymmetry, patient states feeling "tightness" on her neck). Mucous membranes are pink. RESPIRATORY: Respirations not labored. Breath sounds within normal limits. CVS: Capillary refill less than 2 seconds. Pulses within normal limits. GI / : Abdomen soft and nontender and normal bowel sounds. No abdominal tenderness or distention. Normal bowel sounds. SKIN: Skin intact. Skin is warm and dry. Normal skin turgor. --03:30 Ben Leiva R.N. NURSING PROGRESS NOTES Head of bed elevated. Reassurance given. Two patient identifiers checked. Call light placed in reach. Side rails up x 1. Bed placed in lowest position. Brakes of bed on. Patient ready for evaluation- chart flagged. Patient waiting for evaluation. --03:31 Ben Leiva R.N. 03:56 07/11/2016 GI COCKTAIL WHITE (Simethicone) PO Oral Suspension 30 mL given. Allergies verified and confirmed 5 rights. --04:04 Ben Leiva R.N. 04:49 07/11/2016 Toradol (Ketorolac Tromethamine) IM 60 mg given. Given in the left ventral gluteus. Allergies verified and confirmed 5 rights. (I explained that this medication is contraindicated in , and explained the risks of harm to a fetus/child if taken during . Patient states that she is not , and states that there is no chance of , she declines to take a test.). --04:49 Ben Leiva R.N. DISPOSITION / DISCHARGE Departure time: 05:51. Condition at departure: improved and stable. No learning barriers present. Discharge instructions provided and reviewed with the patient. Reviewed warnings. Reviewed medication(s) side effects, precautions, dosing and course information. Prescription(s) given to the patient. Treatments reviewed. Reviewed referrals for followup. Patient verbalized understanding. Written instructions provided in Belarusian. The patient was discharged home and unaccompanied at time of discharge. She left the Emergency Department ambulatory and via private vehicle. Patient driving. --05:54 Ben Leiva R.N. 05:51 07/11/16. BP: 111/73. HR: 81. RR: 18 (regular and unlabored). O2 saturation: 99% on room air. Pain level now: 04/10. --05:54 Ben Leiva R.N. Locked/Released at 07/11/2016 5:54 by Ben Leiva R.N.
--- NOTE | 2016-07-13 05:42 | ED MAR SUMMARY ---
..... Medication Administration Record [facility] [address] [place] [address] Patient: AMARIS WALKER Visit ID: [id number] 31y, F Weight: 100.2 kg Height/Length: 63 in BMI: 39.1 ALLERGIES: ADHESIVES, Penicillins Given 03:56 07/11/2016 Ben Leiva, RAustinN. Medication Administered: GI COCKTAIL WHITE [PO] (SIMETHICONE), Dose: 30 mL Oral Suspension PO. Medication Ordered: GI Cocktail WHITE PO 30 mL (NOW). Given 04:49 07/11/2016 Ben Leiva, R.N. Medication Administered: TORADOL [IM] (KETOROLAC TROMETHAMINE), Dose: 60 mg IM. Medication Ordered: Toradol IM 60 mg (NOW).
--- NOTE | 2016-07-13 05:42 | ED DISCHARGE INSTRUCTIONS ---
Patient: AMARIS WALKER General Instructions [facility] VisitID: [id number] [address] [place] [address] 31y, F Registration Date/Time: 07/11/2016 Acute neck pain. 07/11/2016 03:20 BP: 119/67. HR: 85. RR: 18. O2 saturation: 100%. Temp: 97.7 F. Pain level now: 10. Blood pressure normal. Oxygen saturation normal. INSTRUCTIONS Warnings: GENERAL WARNINGS: Return or contact your physician immediately if your condition worsens or changes unexpectedly, if not improving as expected, or if other problems arise. SPECIFICALLY, return if you develop weakness, numbness, tingling, pain or incontinence. fever. Your Current Medications: CONTINUE TAKING THE FOLLOWING MEDICATIONS: ClonazePAM Oral. Levothyroxine Sodium Oral. Omeprazole Oral : 20 mg daily. Ranitidine HCl Oral. Prescription Medications: Flexeril 10 mg: take 1 orally every 8 hours as needed for muscle spasm or pain. Dispense twenty (20). No refills. Substitution is permissible. Follow-up: Return to the emergency department as needed. Follow up with your doctor in three days. Reason for referral: recheck today's concerns. Summary of care provided to patient via paper. Screening today revealed the patient's blood pressure to be in the normal range. The patient should follow up with a primary care provider for blood pressure management. Understanding of the discharge instructions verbalized by patient. ADDITIONAL INFORMATION Neck Pain [No Trauma] There are several possible causes of neck pain without injury: You can get a minor ligament sprain or muscle strain from a sudden minor neck movement. Sleeping with your neck in an awkward position can also cause this. Some persons respond to emotional stress by tensing the muscles of their neck, shoulders and upper back. Chronic spasm in these muscles can cause neck pain and sometimes headaches. Gradualwear and tearof the joints in the spine can cause degenerative arthritis.This can be a source of occasional or chronic neck pain. With aging or repeated small injuries to the neck, the spinal disks (the cushions between each spinal bone) may bulge and put pressure on a nearby spinal nerve. This causes tingling, pain or numbness spreading from the neck to the shoulder, arm or hand on one side. Acute neck pain usually gets better in one to two weeks. Neck pain related to disk disease, arthritis in the spinal joints or spinal stenosis (narrowing of the spinal canal) can become chronic and last for months or years. Unless you had a forceful physical injury (for example, a car accident or fall), X-rays are usually not ordered for the initial evaluation of neck pain. If pain continues and does not respond to medical treatment, x-rays and other tests may be performed at a later time. Home Care: Rest and relax the muscles. Use a comfortable pillow that supports the head and keeps the spine in a neutral position. The position of the head should not be tilted forward or backward. A rolled up towel may help for a custom fit. Some persons find relief with heat (hot shower, hot bath or heating pad) and massage, while others prefer cold packs (crushed or cubed ice in a plastic bag, wrapped in a towel) . Try both and use the method that feels best for 20 minutes several times a day. You may use acetaminophen (Tylenol) or ibuprofen (Motrin, Advil) to control pain, unless another medicine was prescribed. [ NOTE : If you have chronic liver or kidney disease or ever had a stomach ulcer or GI bleeding, talk with your doctor before using these medicines.] Follow Up with your physician or this facility if your symptoms do not show signs of improvement after one week. Physical therapy or further tests may be needed. [NOTE: A radiologist will review any X-rays or CT scans that were taken. We will notify you of any new findings that may affect your care.] Get Prompt Medical Attention if any of the following occur: Pain becomes worse or spreads into one or both arms Weakness or numbness in one or both arms Increasing headache Neck swelling, difficulty or painful swallowing Fever of 100.4F (38C) or higher, or as directed by your healthcare provider Cyclobenzaprine Hydrochloride Oral tablet What is this medicine? CYCLOBENZAPRINE (yu hooper) is a muscle relaxer. It is used to treat muscle pain, spasms, and stiffness. How should I use this medicine? Take this medicine by mouth with a glass of water. Follow the directions on the prescription label. If this medicine upsets your stomach, take it with food or milk. Take your medicine at regular intervals. Do not take it more often than directed. Talk to your labor economics teacher regarding the use of this medicine in children. Special care may be needed. What side effects may I notice from receiving this medicine? Side effects that you should report to your doctor or health respiratory care technician as soon as possible: allergic reactions like skin rash, itching or hives, swelling of the face, lips, or tongue chest pain fast heartbeat hallucinations seizures vomiting Side effects that usually do not require medical attention (report to your doctor or health respiratory care technician if they continue or are bothersome): headache What may interact with this medicine? Do not take this medicine with any of the following medications: cisapride droperidol flecainide grepafloxacin halofantrine levomethadyl MAOIs like Carbex, Eldepryl, Marplan, Nardil, and Parnate nilotinib pimozide probucol sertindole This medicine may also interact with the following medications: abarelix alcohol contrast dyes dolasetron guanethidine medicines for cancer medicines for depression, anxiety, or psychotic disturbances medicines to treat an irregular heartbeat medicines used for sleep or numbness during surgery or procedure methadone octreotide ondansetron palonosetron phenothiazines like chlorpromazine, mesoridazine, prochlorperazine, thioridazine some medicines for infection like alfuzosin, chloroquine, clarithromycin, levofloxacin, mefloquine, pentamidine, troleandomycin tramadol vardenafil What if I miss a dose? If you miss a dose, take it as soon as you can. If it is almost time for your next dose, take only that dose. Do not take double or extra doses. Where should I keep my medicine? Keep out of the reach of children. Store at room temperature between 15 and 30 degrees C (59 and 86 degrees F). Keep container tightly closed. Throw away any unused medicine after the expiration date. What should I tell my health care provider before I take this medicine? They need to know if you have any of these conditions: heart disease, irregular heartbeat, or previous heart attack liver disease thyroid problem an unusual or allergic reaction to cyclobenzaprine, tricyclic antidepressants, lactose, other medicines, foods, dyes, or preservatives or trying to get breast-feeding What should I watch for while using this medicine? Check with your doctor or health respiratory care technician if your condition does not improve within 1 to 3 weeks. You may get drowsy or dizzy when you first start taking the medicine or change doses. Do not drive, use machinery, or do anything that may be dangerous until you know how the medicine affects you. Stand or sit up slowly. Your mouth may get dry. Drinking water, chewing sugarless gum, or sucking on hard candy may help. You have been given the following additional information: Neck Pain, No Trauma Cyclobenzaprine Hydrochloride Oral tablet (Electronically signed by Nahun Velasco Dr. 07/13/2016 5:42)
--- NOTE | 2016-07-13 05:42 | ED MED RECONCILIATION SUMMARY ---
Patient: AMARIS WALKER Medication Reconciliation Report [facility] VisitID: [id number] [address] [place] [address] 31y, F Registration Date/Time: 07/11/2016 Weight: 100.2 kg Height/Length: 63 in. BMI: 39.1 ALLERGIES: ADHESIVES, Penicillins The patient's Home Medications are listed below: CONTINUE TAKING THE FOLLOWING MEDICATIONS: ClonazePAM Oral Levothyroxine Sodium Oral Omeprazole Oral 20 mg, daily Ranitidine HCl Oral The source(s) of the original Home Medication information: Not obtained. The following Medications were given to the patient in the Emergency Department: GI COCKTAIL WHITE [PO] PO 30 mL, administered: 07/11/2016 3:56:00 AM Toradol [IM] IM 60 mg, administered: 07/11/2016 4:49:00 AM The following Medications were prescribed to the patient: Flexeril 10 mg: take 1 orally every 8 hours as needed for muscle spasm or pain. Dispense twenty (20). No refills. Substitution is permissible. -- Nahun Velasco Dr.
--- NOTE | 2016-07-13 05:42 | ED MED RECONCILIATION SUMMARY ---
Patient: AMARIS WALKER Medication Reconciliation Report [facility] VisitID: [id number] [address] [place] [address] 31y, F Registration Date/Time: 07/11/2016 Weight: 100.2 kg Height/Length: 63 in. BMI: 39.1 ALLERGIES: ADHESIVES, Penicillins The patient's Home Medications are listed below: CONTINUE TAKING THE FOLLOWING MEDICATIONS: ClonazePAM Oral Levothyroxine Sodium Oral Omeprazole Oral 20 mg, daily Ranitidine HCl Oral The source(s) of the original Home Medication information: Not obtained. The following Medications were given to the patient in the Emergency Department: GI COCKTAIL WHITE [PO] PO 30 mL, administered: 07/11/2016 3:56:00 AM Toradol [IM] IM 60 mg, administered: 07/11/2016 4:49:00 AM The following Medications were prescribed to the patient: Flexeril 10 mg: take 1 orally every 8 hours as needed for muscle spasm or pain. Dispense twenty (20). No refills. Substitution is permissible. -- Nahun Velasco Dr.
--- NOTE | 2016-07-13 05:42 | ED MAR SUMMARY ---
..... Medication Administration Record [facility] [address] [place] [address] Patient: AMARIS WALKER Visit ID: [id number] 31y, F Weight: 100.2 kg Height/Length: 63 in BMI: 39.1 ALLERGIES: ADHESIVES, Penicillins Given 03:56 07/11/2016 Ben Leiva, RAustinN. Medication Administered: GI COCKTAIL WHITE [PO] (SIMETHICONE), Dose: 30 mL Oral Suspension PO. Medication Ordered: GI Cocktail WHITE PO 30 mL (NOW). Given 04:49 07/11/2016 Ben Leiva, R.N. Medication Administered: TORADOL [IM] (KETOROLAC TROMETHAMINE), Dose: 60 mg IM. Medication Ordered: Toradol IM 60 mg (NOW).
== END 2016-07-11 05:50 | disposition home or self-care (01) ==
LOC: ED SRH 02:41
DX: M54.2 Cervicalgia (principal); K21.9 Gastro-esophageal reflux disease without esophagitis; Z79.899 Other long term (current) drug therapy; Z88.0 Allergy status to penicillin
CPT/HCPCS: 90100; 95059

== ENCOUNTER 2016-07-16 07:46 | Outpatient (CLI) | payer OTHER ==
--- NOTE | 2016-07-16 09:59 | DIAGNOSTIC IMAGING REPORT ---
PROCEDURE: CT SINUS/FACIAL BONES W/O CONT CLINICAL INDICATION: CHRONIC SINUSITIS AND EUSTACIAN TUBE DYSFUNCTION TECHNIQUE: Noncontrast axial images with coronal reformations. COMPARISON: None. FINDINGS: Paranasal sinuses are clear. Patent ostiomeatal units. Midline nasal septum. Visualized mastoids are clear. No osseous abnormalities. IMPRESSION: 1. Normal sinus CT. All CT scans at this facility use dose modulation, iterative reconstruction, and/or weight-based dosing when appropriate to reduce radiation dose to as low as reasonably achievable.
== END 2016-07-16 23:00 ==
LOC: CT SRH 07:46
DX: J32.9 Chronic sinusitis, unspecified (principal); H69.90 Unspecified Eustachian tube disorder, unspecified ear

== ENCOUNTER 2016-08-09 22:21 | Emergency (ER) | payer OTHER ==
--- NOTE | 2016-08-09 23:03 | DIAGNOSTIC IMAGING REPORT ---
PROCEDURE: XR CHEST 1 VIEW INDICATION: CHEST PAIN TECHNIQUE: Portable AP view (2300). COMPARISON: Para chest x-ray and 09/26/2015. FINDINGS: Lungs are clear. Heart and mediastinum are normal. Thorax is normal. IMPRESSION: 1. Negative chest.
--- NOTE | 2016-08-10 00:57 | ED NURSING NOTES ---
Clinical Report - Nurses [facility] [address] [place] [address] 08/09/2016 22:21 Patient: AMARIS WALKER TRIAGE Triage time 22:25. Acuity: LEVEL 3. Chief Complaint: (head pressure, SOB). 22:33 08/09/16. Alert. No acute distress. SEPSIS SCREEN: Sepsis Screen. Negative (no infection suspected/documented). NISHI COMA SCORE: [place] Coma Scale: 15- eyes open spontaneously (4); best verbal response- oriented x 4 (5); best motor response- obeys commands (6). --22:34 Kat Bosch R.N. 22:25 08/09/16. BP: 134/72 taken on the left arm, while sitting. HR: 74. RR: 16. O2 saturation: 100% on room air. Temp: 97.9 F. Pain level now: 5/10. --22:34 Kat Bosch R.N. Weight: 100.2 kg stated. Height/Length: 63 inches Per Patient. BMI: 39.1. --22:30 Kat Bosch R.N. Medications ClonazePAM Oral. --22:27 Kat Bosch R.N. Levothyroxine Sodium Oral. Ranitidine HCl Oral. --22:27 Kat Bosch R.N. Allergies ADHESIVES. Penicillins. --22:27 Kat Bosch R.N. History Arrived by private vehicle. Historian: patient. Accompanied by family. Primary physician (Dr Mendez). Onset. (Wednesday). ( Patient states she started experiencing head pressure a couple of days ago. She states she came in today because she had pain that moved from her neck to the top of her chest.). She has had weakness and difficulty breathing. ( Patient states she is experiencing facial weakness.). PAST MEDICAL HX: Immunizations: up-to-date. Denies current . SOCIAL HX: Never smoker. Occasional alcohol use. No drug use. FALL RISK ASSESSMENT: Fall risk assessment completed. No fall risk identified. NUTRITIONAL RISK ASSESSMENT: The nutritional risk assessment revealed no deficiencies. FUNCTIONAL ASSESSMENT: Functional assessment: no impairments noted. LEARNING NEEDS ASSESSMENT: The learning needs assessment revealed no barriers. SKIN INTEGRITY ASSESSMENT: Skin integrity risk assessment completed. No skin integrity risk identified. --22:34 Kat Bosch R.N. PROBLEMS: GERD. Neck Pain. Migraine Headache. Neurological Disease. Paresthesia. Tension-Type Headache. Headache. Atypical Chest Pain. Palpitations. Hyperventilation. ADHD - Attention Deficit Hyperactivity Disorder. Hypothyroidism. Fibromyalgia. Anxiety Reaction. --22:28 Kat Bosch R.N. ADDITIONAL SURGERIES: no known surgeries. Interventions ID band on patient. To treatment room. --22:34 Kat Bosch R.N. PHYSICAL ASSESSMENT 22:35 08/09/16. Ambulatory to room. GENERAL / NEURO / PSYCH: Alert. Oriented X 4. Appears in no acute distress. HEENT: No facial asymmetry noted. Mucous membranes are pink. RESPIRATORY: Respirations not labored. Chest nontender. Breath sounds within normal limits. CVS: Capillary refill less than 2 seconds. SKIN: Skin intact. Skin is warm and dry. --22:35 Kat Bosch R.N. NURSING PROGRESS NOTES 22:36 08/09/16. satellite project site monitor, pulse oximeter and NIBP monitor placed on patient; monitor alarms on. Patient gowned. Head of bed elevated. Reassurance given. Two patient identifiers checked. Call light placed in reach. Bed placed in lowest position. Brakes of bed on. ( ED phys in room.). --22:36 Kat Bosch R.N. 22:42 08/09/2016 Site #1 started via IV in the right antecubital space with an 20g angiocath; one attempt. Blood drawn: rainbow set. Labeled in the presence of the patient and sent to the lab. Saline lock flushed with 5 mL saline (placed by Andrew Hodge RN). --23:12 Kat Bosch R.N. 22:57 08/09/2016 Started bag #1 1000 mL IV Fluids IV NS (Saline); bolus of 1000 mL wide open via site #1. Allergies verified and confirmed 5 rights. IV patency established. IV site checked: no pain, redness, or swelling. IV flushed thoroughly pre- and post-medication administration. Completed per protocol. --23:12 Kat Bosch R.N. 23:03 08/09/2016 Zofran (Ondansetron HCl) IVP 4 mg given over 2 minute(s) via site #1. Allergies verified and confirmed 5 rights. IV patency established. IV site checked: no pain, redness, or swelling. IV flushed thoroughly pre- and post-medication administration. IVP given by RN. --23:13 Kat Bosch R.N. 23:08 08/09/2016 Toradol IVP 30 mg given over 2 minute(s) via site #1. Allergies verified and confirmed 5 rights. IV patency established. IV site checked: no pain, redness, or swelling. IV flushed thoroughly pre- and post-medication administration. IVP given by RN. --23:13 Kat Bosch R.N. Patient informed about reason for wait and about plan of care. ( lights dimmed for comfort). --23:57 Kat Bosch R.N. 00:16 08/10/16. Patient informed about reason for wait and about plan of care. --00:16 Kat Bosch R.N. 00:51 08/10/2016 Nitrofurantoin PO Tablets 100 mg given. Allergies verified and confirmed 5 rights. --01:11 Kat Bosch R.N. DISPOSITION / DISCHARGE 01:03 08/10/16. No learning barriers present. Discharge instructions provided and reviewed with the patient. Reviewed warnings. Reviewed medication(s). Treatments reviewed. Patient verbalized understanding. Written instructions provided in B[place]. The patient was discharged home and accompanied by spouse. She left the Emergency Department ambulatory and via private vehicle. Patient driving. --01:04 Kat Bosch R.N. 01:00 08/10/16. BP: 101/68 taken on the left arm, while sitting. HR: 72. RR: 14. O2 saturation: 99%. Temp: deferred. Pain level now: 05/08. --01:04 Kat Bosch R.N. Locked/Released at 08/10/2016 1:12 by Kat Bosch R.N.
--- NOTE | 2016-08-10 00:57 | ED NURSING NOTES ---
Clinical Report - Nurses [facility] [address] [place] [address] 08/09/2016 22:21 Patient: AMARIS WALKER TRIAGE Triage time 22:25. Acuity: LEVEL 3. Chief Complaint: (head pressure, SOB). 22:33 08/09/16. Alert. No acute distress. SEPSIS SCREEN: Sepsis Screen. Negative (no infection suspected/documented). NISHI COMA SCORE: [place] Coma Scale: 15- eyes open spontaneously (4); best verbal response- oriented x 4 (5); best motor response- obeys commands (6). --22:34 Kat Bosch R.N. 22:25 08/09/16. BP: 134/72 taken on the left arm, while sitting. HR: 74. RR: 16. O2 saturation: 100% on room air. Temp: 97.9 F. Pain level now: 5/10. --22:34 Kat Bosch R.N. Weight: 100.2 kg stated. Height/Length: 63 inches Per Patient. BMI: 39.1. --22:30 Kat Bosch R.N. Medications ClonazePAM Oral. --22:27 Kat Bosch R.N. Levothyroxine Sodium Oral. Ranitidine HCl Oral. --22:27 Kat Bosch R.N. Allergies ADHESIVES. Penicillins. --22:27 Kat Bosch R.N. History Arrived by private vehicle. Historian: patient. Accompanied by family. Primary physician (Dr Mendez). Onset. (Wednesday). ( Patient states she started experiencing head pressure a couple of days ago. She states she came in today because she had pain that moved from her neck to the top of her chest.). She has had weakness and difficulty breathing. ( Patient states she is experiencing facial weakness.). PAST MEDICAL HX: Immunizations: up-to-date. Denies current . SOCIAL HX: Never smoker. Occasional alcohol use. No drug use. FALL RISK ASSESSMENT: Fall risk assessment completed. No fall risk identified. NUTRITIONAL RISK ASSESSMENT: The nutritional risk assessment revealed no deficiencies. FUNCTIONAL ASSESSMENT: Functional assessment: no impairments noted. LEARNING NEEDS ASSESSMENT: The learning needs assessment revealed no barriers. SKIN INTEGRITY ASSESSMENT: Skin integrity risk assessment completed. No skin integrity risk identified. --22:34 Kat Bosch R.N. PROBLEMS: GERD. Neck Pain. Migraine Headache. Neurological Disease. Paresthesia. Tension-Type Headache. Headache. Atypical Chest Pain. Palpitations. Hyperventilation. ADHD - Attention Deficit Hyperactivity Disorder. Hypothyroidism. Fibromyalgia. Anxiety Reaction. --22:28 Kat Bosch R.N. ADDITIONAL SURGERIES: no known surgeries. Interventions ID band on patient. To treatment room. --22:34 Kat Bosch R.N. PHYSICAL ASSESSMENT 22:35 08/09/16. Ambulatory to room. GENERAL / NEURO / PSYCH: Alert. Oriented X 4. Appears in no acute distress. HEENT: No facial asymmetry noted. Mucous membranes are pink. RESPIRATORY: Respirations not labored. Chest nontender. Breath sounds within normal limits. CVS: Capillary refill less than 2 seconds. SKIN: Skin intact. Skin is warm and dry. --22:35 Kat Bosch R.N. NURSING PROGRESS NOTES 22:36 08/09/16. windshield repair technician, pulse oximeter and NIBP monitor placed on patient; monitor alarms on. Patient gowned. Head of bed elevated. Reassurance given. Two patient identifiers checked. Call light placed in reach. Bed placed in lowest position. Brakes of bed on. ( ED phys in room.). --22:36 Kat Bosch R.N. 22:42 08/09/2016 Site #1 started via IV in the right antecubital space with an 20g angiocath; one attempt. Blood drawn: rainbow set. Labeled in the presence of the patient and sent to the lab. Saline lock flushed with 5 mL saline (placed by Andrew Hodge RN). --23:12 Kat Bosch R.N. 22:57 08/09/2016 Started bag #1 1000 mL IV Fluids IV NS (Saline); bolus of 1000 mL wide open via site #1. Allergies verified and confirmed 5 rights. IV patency established. IV site checked: no pain, redness, or swelling. IV flushed thoroughly pre- and post-medication administration. Completed per protocol. --23:12 Kat Bosch R.N. 23:03 08/09/2016 Zofran (Ondansetron HCl) IVP 4 mg given over 2 minute(s) via site #1. Allergies verified and confirmed 5 rights. IV patency established. IV site checked: no pain, redness, or swelling. IV flushed thoroughly pre- and post-medication administration. IVP given by RN. --23:13 Kat Bosch R.N. 23:08 08/09/2016 Toradol IVP 30 mg given over 2 minute(s) via site #1. Allergies verified and confirmed 5 rights. IV patency established. IV site checked: no pain, redness, or swelling. IV flushed thoroughly pre- and post-medication administration. IVP given by RN. --23:13 Kat Bosch R.N. Patient informed about reason for wait and about plan of care. ( lights dimmed for comfort). --23:57 Kat Bosch R.N. 00:16 08/10/16. Patient informed about reason for wait and about plan of care. --00:16 Kat Bosch R.N. 00:51 08/10/2016 Nitrofurantoin PO Tablets 100 mg given. Allergies verified and confirmed 5 rights. --01:11 Kat Bosch R.N. DISPOSITION / DISCHARGE 01:03 08/10/16. No learning barriers present. Discharge instructions provided and reviewed with the patient. Reviewed warnings. Reviewed medication(s). Treatments reviewed. Patient verbalized understanding. Written instructions provided in Monegasque. The patient was discharged home and accompanied by spouse. She left the Emergency Department ambulatory and via private vehicle. Patient driving. --01:04 Kat Bosch R.N. 01:00 08/10/16. BP: 101/68 taken on the left arm, while sitting. HR: 72. RR: 14. O2 saturation: 99%. Temp: deferred. Pain level now: 05/08. --01:04 Kat Bosch R.N. Locked/Released at 08/10/2016 1:12 by Kat Bosch R.N.
--- NOTE | 2016-08-10 00:57 | ED ORDER SUMMARY ---
..... Patient: AMARIS WALKER OrderSheet [facility] VisitID: [id number] [address] [place] [address] 31y, F Registration Date/Time: 08/09/2016 ORDER SHEET Weight: 100.2 kg (stated) Allergies: ADHESIVES, Penicillins GENERAL ORDERS: Church Warden (Continuous) (CP) (22:39 08/09/2016 Michelle Bernstein) (22:41 RMarsden R.N.) Chest 1V Urgent (22:39 08/09/2016 Michelle Bernstein) (Ack 22:46 Samantha ER Clamp Remover) (23:10 RMarsden R.N.) CBC w Diff Urgent (22:40 08/09/2016 Michelle Bernstein) (Collected 22:41 RMarsden R.N.) (22:42 JQuivey R.N.) CMP Urgent (22:40 08/09/2016 Michelle Bernstein) (Collected 22:41 RMarsden R.N.) (22:42 JQuivey R.N.) UA-Culture if indicated Urgent (22:40 08/09/2016 Michelle Bernstein) (Ack 22:46 Samantha ER Clamp Remover) (Collected 23:10 RMarsden R.N.) (23:13 RMarsden R.N.) PT with INR Urgent (22:40 08/09/2016 Michelle Bernstein) (Collected 22:41 RMarsden R.N.) (22:42 JQuivey R.N.) D-Dimer Urgent (22:40 08/09/2016 Michelle Bernstein) (Collected 22:41 RMarsden R.N.) (22:42 JQuivey R.N.) Troponin-I Urgent (22:40 08/09/2016 Michelle Bernstein) (Collected 22:41 RMarsden R.N.) (22:42 JQuivey R.N.) EKG - ER Stat (22:40 08/09/2016 Michelle Bernstein) (Ack 22:54 CHagkale ER Clamp Remover) (23:10 RMarsden R.N.) Pulse oximeter (22:40 08/09/2016 Michelle Bernstein) (22:41 RMhernan R.N.) MEDICATION ORDERS: Nitrofurantoin PO 100 mg (NOW) (00:47 08/10/2016 Michelle Bernstein) (Ack 0:48 RMarsden R.N.) (1:11 RMarsden R.N.) IV FLUIDS: IV NS : initial bolus 1000 mL (1000 mL/hr), then none - for X1 (NOW) (22:39 08/09/2016 Michelle Bernstein) (Ack 22:41 RMarsden R.N.) (23:12 RMarsvasile R.N.) Toradol IV 30 mg (NOW) (22:39 08/09/2016 Michelle Bernstein) (Ack 22:41 RMarsden R.N.) (23:13 RMarsden R.N.) Zofran IV 4 mg (NOW) (22:40 08/09/2016 Michelle Bernstein) (Ack 22:41 RMarsden R.N.) (23:13 RMarsden R.N.) ORDER SHEET NOTES: [Electronically signed by Kat Bosch R.N. (01:12 08/10/2016)] [Electronically signed by Nahun Velasco Dr. (16:59 08/11/2016)] [Electronically locked/signed by Kat Bosch R.N. (01:12 08/10/2016)]
--- NOTE | 2016-08-10 00:57 | ED ORDER SUMMARY ---
..... Patient: AMARIS WALKER OrderSheet [facility] VisitID: [id number] [address] [place] [address] 31y, F Registration Date/Time: 08/09/2016 ORDER SHEET Weight: 100.2 kg (stated) Allergies: ADHESIVES, Penicillins GENERAL ORDERS: Power Machine Operator (Continuous) (CP) (22:39 08/09/2016 Michelle Bernstein) (22:41 RMarsden R.N.) Chest 1V Urgent (22:39 08/09/2016 Michelle Bernstein) (Ack 22:46 Samantha ER Carboy Filler) (23:10 RMarsden R.N.) CBC w Diff Urgent (22:40 08/09/2016 Michelle Bernstein) (Collected 22:41 RMarsden R.N.) (22:42 JQuivey R.N.) CMP Urgent (22:40 08/09/2016 Michelle Bernstein) (Collected 22:41 RMarsden R.N.) (22:42 JQuivey R.N.) UA-Culture if indicated Urgent (22:40 08/09/2016 Michelle Bernstein) (Ack 22:46 Samantha ER Carboy Filler) (Collected 23:10 RMarsden R.N.) (23:13 RMarsden R.N.) PT with INR Urgent (22:40 08/09/2016 Michelle Bernstein) (Collected 22:41 RMarsden R.N.) (22:42 JQuivey R.N.) D-Dimer Urgent (22:40 08/09/2016 Michelle Bernstein) (Collected 22:41 RMarsden R.N.) (22:42 JQuivey R.N.) Troponin-I Urgent (22:40 08/09/2016 Michelle Bernstein) (Collected 22:41 RMarsden R.N.) (22:42 JQuivey R.N.) EKG - ER Stat (22:40 08/09/2016 Michelle Bernstein) (Ack 22:54 CHag[place] ER Carboy Filler) (23:10 RMarsden R.N.) Pulse oximeter (22:40 08/09/2016 Michelle Bernstein) (22:41 RMhernan R.N.) MEDICATION ORDERS: Nitrofurantoin PO 100 mg (NOW) (00:47 08/10/2016 Michelle Bernstein) (Ack 0:48 RMarsden R.N.) (1:11 RMarsden R.N.) IV FLUIDS: IV NS : initial bolus 1000 mL (1000 mL/hr), then none - for X1 (NOW) (22:39 08/09/2016 Michelle Bernstein) (Ack 22:41 RMarsden R.N.) (23:12 RMarsvasile R.N.) Toradol IV 30 mg (NOW) (22:39 08/09/2016 Michelle Bernstein) (Ack 22:41 RMarsden R.N.) (23:13 RMarsden R.N.) Zofran IV 4 mg (NOW) (22:40 08/09/2016 Michelle Bernstein) (Ack 22:41 RMarsden R.N.) (23:13 RMarsden R.N.) ORDER SHEET NOTES: [Electronically signed by Kat Bosch R.N. (01:12 08/10/2016)] [Electronically signed by Nahun Velasco Dr. (16:59 08/11/2016)] [Electronically locked/signed by Kat Bosch R.N. (01:12 08/10/2016)]
--- NOTE | 2016-08-10 00:57 | ED CLINICAL REPORT ---
Clinical Report - Physicians/Mid Levels [facility] [address] [place] [address] 08/09/2016 22:21 Patient: AMARIS WALKER Time Seen: 2230. Arrived- By private vehicle. Historian- patient. HISTORY OF PRESENT ILLNESS Chief Complaint: CHEST PAIN. It is described as located in the right chest and central chest area. No radiation. At its maximum, severity described as moderate. When seen in the E.D., severity described as moderate. Modifying factors- worsened by deep breaths. Relieved by rest. This started past few days and is still present. It was abrupt in onset and has been constant but is not gone now. Onset during rest. The patient has had nausea. No vomiting, difficulty breathing or diaphoresis. (hx of idiopathic intracranial HTN). No additional chest pain. Similar symptoms previously: None. Recent medical care: Not recently seen/assessed. REVIEW OF SYSTEMS No fever, chills or pedal edema. All systems otherwise negative, except as recorded above. PAST HISTORY Denies the following risk factors for DVT/PE - history of DVT and pulmonary embolism, recent surgery, recent [facility] and congestive heart failure. Denies the following risk factors for DVT/PE - cancer, clotting disorder, estrogens, immobility and advanced in age. Denies the following risk factors for DVT/PE - vena cava filter. Additional Surgeries: no known surgeries. Medications: Levothyroxine Sodium Oral. Ranitidine HCl Oral. ClonazePAM Oral. Allergies: ADHESIVES. Penicillins. SOCIAL HISTORY Never smoker. Alcohol use. No drug use. No recent travel. Is a local resident. ADDITIONAL NOTES The nursing notes have been reviewed. PHYSICAL EXAM Vital Signs: 08/09/2016 22:25 BP: 134/72. HR: 74. RR: 16. O2 saturation: 100%. Temp: 97.9 F. Pain level now: 5/10. Blood pressure normal. Oxygen saturation normal. Appearance: Alert. Oriented X3. No acute distress. Eyes: Pupils equal, round and reactive to light. Eyes normal inspection. ENT: Ears normal. Nose normal. Pharynx normal. Neck: Normal inspection. Neck supple. CVS: Normal heart rate and rhythm. Heart sounds normal. Pulses normal. Respiratory: No respiratory distress. Breath sounds normal. Chest nontender. No rales, rhonchi or wheezes. Abdomen: Soft and nontender. Bowel sounds normal. Skin: Skin warm and dry. Normal skin color. No rash. Normal skin turgor. Extremities: Extremities exhibit normal ROM. No lower extremity edema. No calf tenderness. No lower extremity edema. LABS, X-RAYS, AND EKG EKG: No acute process. No acute ischemia. Normal EKG. Normal sinus rhythm. Rate: 79. Normal P waves. Normal EDMUNDO. Normal QRS complex. Normal axis. Normal ST and T waves, QT and QTc. The study has been interpreted contemporaneously. The study has been independently viewed by me. The EKG appears to be a good tracing. Chest X-ray: (PROCEDURE: XR CHEST 1 VIEW INDICATION: CHEST PAIN TECHNIQUE: Portable AP view (2300). COMPARISON: Para chest x-ray and 09/26/2015. FINDINGS: Lungs are clear. Heart and mediastinum are normal. Thorax is normal. IMPRESSION: 1. Negative chest.). The X-rays were independently viewed by me and interpreted by the radiologist. The X-rays were discussed with the radiologist (via pacs). Laboratory Tests: UA-Culture if indicated: (PATRICK: 08/09/2016 23:07) ( MsgRcvd 08/09/2016 23:18) Final results Test Result Flag Units (Reference) URINE COLOR YELLOW URINE APPEARANCE CLEAR URINE GLUCOSE NEGATIVE (NEGATIVE) URINE BILIRUBIN NEGATIVE (NEGATIVE) URINE KETONE NEGATIVE (NEGATIVE) URINE SPECIFIC GRAVITY 1.025 (1.010-1.030) URINE PH 6.0 (5.0-8.0) URINE PROTEIN NEGATIVE (NEGATIVE) URINE UROBILINOGEN 0.2 EU/dL (0.2-1.0) URINE NITRITE NEGATIVE (NEGATIVE) URINE BLOOD 1+ (NEGATIVE) URINE LEUK ESTERASE POSITIVE (NEGATIVE) URINE RBC 5-10 rbc/hpf (0-1) URINE WBC 5-10 wbc/hpf (0-1) URINE EPITHELIAL CELLS 1-3 EPI/hpf (0-5) URINE BACTERIA MODERATE (2+ TO 3+) (NONE SEEN) URINE COMMENT CULTURE INDICATED URINE CULTURES ARE SET-UP BASED ON THE FOLLOWING CRITERIA:POSITIVE NITRITEPOSITIVE LEUKOCYTE ESTERASEGREATER THAN 10 WHITE BLOOD CELLSMODERATE (2+) OR GREATER BACTERIA CBC w Diff: (PATRICK: 08/09/2016 22:30) ( [facility] [place]:50[place] Final results Test Result Flag Units (Reference) WHITE BLOOD COUNT 11.8 H K/uL (4.5-11.5) RED BLOOD COUNT 5.11 M/uL (4.00-5.20) HEMOGLOBIN 13.6 gm/dL (12.0-16.0) HEMATOCRIT 41.8 % (36.0-46.0) MEAN CELL VOLUME 82 fL (80-100) MEAN CORPUSCULAR HGB 27 pg (26-34) MEAN CORPUSCULAR HGB CONC 33 g/dL (31-37) RED CELL DISTRIBUTION WIDTH 13.3 % (11.6-14.8) PLATELET COUNT 371 K/uL (150-400) LYMPH % 49.7 H % (25-40) MONO % 5.5 % (3-14) GRANULOCYTE % 44.8 L (53-90) PT with INR: (PATRICK: 08/09/2016 22:30) ( [facility] [place]09[place] 22:58) Final results Test Result Flag Units (Reference) INR 0.9 (0.8-1.2) Low Intensity Therapy: INR 1.5-2.0 PT range 18.5-23.1Mod.Intensity Therapy: INR 2.0-3.0 PT range 23.1-31.5High Intensity Therapy: INR 2.5-3.5 PT range 27.4-35.5High Intensity Therapy 2: INR 3.0-4.0 PT range 31.5-39.3 D-DIMER QUANTITATIVE 0.38 ug/mLFEU (0.27-0.52) The primary value of this quantitative assay relates toits negative predictive value (i.e. exclusion) of pulmonaryembolism/deep vein thrombosis/DIC.Elevated levels of d-dimer may also occur with:, age, cancer, inflammation, liver disease,post-op, infection, hematoma, coronary disease, peripheralarteriopathy, bleeding disorders and thrombolytic treatment.Results should be correlated with other clinical andradiological data.Testing Methodology: Latex Immunoassay CMP: (PATRICK: 08/09/2016 22:30) ( MsgRcvd 08/09/2016 23:01) Final results Test Result Flag Units (Reference) GLUCOSE 105 mg/dL (70-110) BUN 17 mg/dL (7-18) CREATININE 0.9 mg/dL (0.6-1.3) Estimated GFR >60 mL/min Estimated GFR- >60 mL/min Note: Persistent reduction over 3 months in eGFR<60 mL/min/1.73 m2 defines CKD. Patients with eGFR values>=60 mL/min/1.73 m2 may also have CKD if evidence ofpersistent proteinuria. Additional information may be foundat www.kidney.org. SODIUM 144 mmol/L (136-145) POTASSIUM 3.6 mmol/L (3.5-5.1) CHLORIDE 106 mmol/L (98-107) CARBON DIOXIDE 26 mmol/L (21-32) CALCIUM 9.1 mg/dL (8.5-10.1) TOTAL PROTEIN 8.0 g/dL (6.4-8.2) ALBUMIN 3.8 g/dL (3.3-5.0) BILIRUBIN, TOTAL 0.2 mg/dL (0.0-1.0) ALKALINE PHOSPHATASE 77 U/L (46-116) AST (SGOT) 23 U/L (15-37) ALT (SGPT) 41 U/L (12-78) TROPONIN I <0.05 L ng/mL (0.00-1.5) TROPONIN REFERENCE RANGE:<0.1 NEGATIVE0.1-1.5 INDETERMINANT>1.5 POSITIVE Culture, Urine: (PATRICK: 08/09/2016 23:07) ( MsgRcvd 08/11/2016 12:05) Final results Test Result Flag Units (Reference) CULTURE, URINE DATE: 08/11/16 NO SIGNIFICANT ISOLATION: NO SIGNIFICANT ISOLATION PRELIM REPORT: FINAL REPORT . PROGRESS AND PROCEDURES Course of Care: the patient is a 31-year-old female presenting for evaluations of what she describes as pleuritic type chest pain. Patient will be evaluated for the chest pain with d-dimer for evaluation of pulmonary embolism. Patient also with low cardiac risk factors however because of the chest pain, will be evaluating for acute myocardial infarction. Patient also with headache. Do not fill patient's headache is because of the dangers of the increased intracranial pressure. Patient had recently stopped taking her Diamox. Recommended patient go back on her Diamox. No signs of papilledema on examination. No visual changes at this time. Patient is agreeable to the treatment and plan. Pain medication has been offered. The patient's workup was marked for the findings above. D-dimer is noted to be negative. Chest x-ray is clear. No signs of abnormalities noted on patient's EKG. Because the patient's negative workup here in emergency department, did offer patient requires further emergency Department evaluation/workup. Patient is a stable outpatient candidate. Did not fill patient's symptoms here are due to acute myocardial infarction, pulmonary embolism, or more sinister type of infection patient's pain is likely pleuritic in nature. Patient is a good outpatient candidate. 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 All questions have been answered. The patient expressed understanding of these instructions and was agreeable to them. Disposition: Discharged. Condition: good. CLINICAL IMPRESSION 08/09/2016 22:25 BP: 134/72. HR: 74. RR: 16. O2 saturation: 100%. Temp: 97.9 F. Pain level now: 5/10. Acute headache. Blood pressure normal. Oxygen saturation normal. Atypical chest pain .12 lead EKG performed. Acute urinary tract infection with cystitis and hematuria. INSTRUCTIONS Warnings: GENERAL WARNINGS: Return or contact your physician immediately if your condition worsens or changes unexpectedly, if not improving as expected, or if other problems arise. SPECIFICALLY, return if you develop chest, neck, jaw, shoulder, arm, or back pain, difficulty breathing, a fluttering sensation in your chest, lightheadedness, fainting, excessive fatigue, or sudden sweating. Your Current Medications: CONTINUE TAKING THE FOLLOWING MEDICATIONS: ClonazePAM Oral. Levothyroxine Sodium Oral. Ranitidine HCl Oral. Prescription Medications: Nitrofurantoin 100 mg: take 1 capsule orally every 12 hours for 5 days. No refill. (disp 10 caps) Follow-up: Return to the emergency department as needed. Follow up with your doctor in three days. Reason for referral: recheck today's concerns. Summary of care provided to patient via paper. Screening today revealed the patient's blood pressure to be in the normal range. The patient should follow up with a primary care provider for blood pressure management. Understanding of the discharge instructions verbalized by patient. (Electronically signed by Nahun Velasco Dr. 08/11/2016 16:59)
--- NOTE | 2016-08-11 17:00 | ED MED RECONCILIATION SUMMARY ---
Patient: AMARIS WALKER Medication Reconciliation Report [facility] VisitID: [id number] [address] [place] [address] 31y, F Registration Date/Time: 08/09/2016 Weight: 100.2 kg Height/Length: 63 in. BMI: 39.1 ALLERGIES: ADHESIVES, Penicillins The patient's Home Medications are listed below: CONTINUE TAKING THE FOLLOWING MEDICATIONS: ClonazePAM Oral Levothyroxine Sodium Oral Ranitidine HCl Oral The source(s) of the original Home Medication information: Not obtained. The following Medications were given to the patient in the Emergency Department: IV NS IV Fluids bolus 1000 mL wide open, administered: 08/09/2016 10:57:00 PM Zofran [IVP] IVP 4 mg, administered: 08/09/2016 11:03:00 PM Toradol [IVP] IVP 30 mg, administered: 08/09/2016 11:08:00 PM Nitrofurantoin [PO] PO 100 mg, administered: 08/10/2016 12:51:00 AM The following Medications were prescribed to the patient: Nitrofurantoin 100 mg: take 1 capsule orally every 12 hours for 5 days. No refill.(disp 10 caps) -- Nahun Velasco Dr.
--- NOTE | 2016-08-11 17:00 | ED MAR SUMMARY ---
..... Medication Administration Record [facility] [address] [place] [address] Patient: AMARIS WALKER Visit ID: [id number] 31y, F Weight: 100.2 kg Height/Length: 63 in BMI: 39.1 ALLERGIES: ADHESIVES, Penicillins Start 22:57 08/09/2016 Kat Bosch R.N. Medication Administered: IV NS (SALINE), Dose: IV Fluids, Bolus: 1000 mL wide open, Dispensed: 1000 mL bag, Site: #1 right AC. Medication Ordered: IV NS : initial bolus 1000 mL (1000 mL/hr), then none - for X1 (NOW). Given 23:03 08/09/2016 Kat Bosch R.N. Medication Administered: ZOFRAN [IVP] (ONDANSETRON HCL), Dose: 4 mg IVP over 2 minute(s), Site: #1 right AC. Medication Ordered: Zofran IV 4 mg (NOW). Given 23:08 08/09/2016 Kat Bosch R.N. Medication Administered: TORADOL [IVP], Dose: 30 mg IVP over 2 minute(s), Site: #1 right AC. Medication Ordered: Toradol IV 30 mg (NOW). Given 00:51 08/10/2016 Kat Bosch R.N. Medication Administered: NITROFURANTOIN [PO], Dose: 100 mg Tablets PO. Medication Ordered: Nitrofurantoin PO 100 mg (NOW).
--- NOTE | 2016-08-11 17:00 | ED MAR SUMMARY ---
..... Medication Administration Record [facility] [address] [place] [address] Patient: AMARIS WALKER Visit ID: [id number] 31y, F Weight: 100.2 kg Height/Length: 63 in BMI: 39.1 ALLERGIES: ADHESIVES, Penicillins Start 22:57 08/09/2016 Kat Bosch R.N. Medication Administered: IV NS (SALINE), Dose: IV Fluids, Bolus: 1000 mL wide open, Dispensed: 1000 mL bag, Site: #1 right AC. Medication Ordered: IV NS : initial bolus 1000 mL (1000 mL/hr), then none - for X1 (NOW). Given 23:03 08/09/2016 Kat Bosch R.N. Medication Administered: ZOFRAN [IVP] (ONDANSETRON HCL), Dose: 4 mg IVP over 2 minute(s), Site: #1 right AC. Medication Ordered: Zofran IV 4 mg (NOW). Given 23:08 08/09/2016 Kat Bosch R.N. Medication Administered: TORADOL [IVP], Dose: 30 mg IVP over 2 minute(s), Site: #1 right AC. Medication Ordered: Toradol IV 30 mg (NOW). Given 00:51 08/10/2016 Kat Bosch R.N. Medication Administered: NITROFURANTOIN [PO], Dose: 100 mg Tablets PO. Medication Ordered: Nitrofurantoin PO 100 mg (NOW).
--- NOTE | 2016-08-11 17:00 | ED DISCHARGE INSTRUCTIONS ---
Patient: AMARIS WALKER General Instructions [facility] VisitID: [id number] [address] [place] [address] 31y, F Registration Date/Time: 08/09/2016 08/09/2016 22:25 BP: 134/72. HR: 74. RR: 16. O2 saturation: 100%. Temp: 97.9 F. Pain level now: 5/10. Acute headache. Blood pressure normal. Oxygen saturation normal. Atypical chest pain .12 lead EKG performed. Acute urinary tract infection with cystitis and hematuria. INSTRUCTIONS Warnings: GENERAL WARNINGS: Return or contact your physician immediately if your condition worsens or changes unexpectedly, if not improving as expected, or if other problems arise. SPECIFICALLY, return if you develop chest, neck, jaw, shoulder, arm, or back pain, difficulty breathing, a fluttering sensation in your chest, lightheadedness, fainting, excessive fatigue, or sudden sweating. Your Current Medications: CONTINUE TAKING THE FOLLOWING MEDICATIONS: ClonazePAM Oral. Levothyroxine Sodium Oral. Ranitidine HCl Oral. Prescription Medications: Nitrofurantoin 100 mg: take 1 capsule orally every 12 hours for 5 days. No refill. (disp 10 caps) Follow-up: Return to the emergency department as needed. Follow up with your doctor in three days. Reason for referral: recheck today's concerns. Summary of care provided to patient via paper. Screening today revealed the patient's blood pressure to be in the normal range. The patient should follow up with a primary care provider for blood pressure management. Understanding of the discharge instructions verbalized by patient. ADDITIONAL INFORMATION Chest Pain, Uncertain Cause Chest pain can happen for a number of reasons. Sometimes the cause can not be determined. If yourcondition does not seem serious, and your pain does not appear to be coming from your heart, your doctor may recommend watching it closely. Sometimes the signs of a serious problem take more time to appear. Therefore, watch for the warning signs listed below. Home care After your visit, follow these recommendations: Rest today and avoid strenuous activity. Take any prescribed medicine as directed. Follow-up care Follow up with your doctor or this facility as instructed or if you do not start to feel better within 24 hours. Call 911 Get immediate medical attention if any of the following occur: A change in the type of pain: if it feels different, becomes more severe, lasts longer, or begins to spread into your shoulder, arm, neck, jaw or back Shortness of breath or increased pain with breathing Weakness, dizziness, or fainting Rapid heart beat Get prompt medical attention Call your doctor right away if any of the following occur: Cough with dark colored sputum (phlegm) or blood Fever of 100.4F(38C) or higher, or as directed by your health care provider Swelling, pain or redness in one leg Headache [Unspecified] The cause of your headache today is not clear, but it does not appear to be the sign of any serious illness. Under stress, some people tense the muscles of their shoulder, neck and scalp without knowing it. If this condition lasts long enough, a TENSION HEADACHE can occur. A MIGRAINE HEADACHE is caused by changes in blood flow to the brain. A migraine attack may be triggered by emotional stress, hormone changes during the menstrual cycle, oral contraceptives, alcohol use, certain foods containing tyramine, eye strain, weather changes, missing meals, lack of sleep or oversleeping. Other causes of headache include a viral illness with high fever, head injury with concussion, sinus, ear or throat infection, dental pain and TMJ (jaw joint) pain. More serious but less common causes of headache include stroke, brain hemorrhage, brain tumor, meningitis and encephalitis. Home Care: If you were given pain medicine for this headache, do not drive yourself home. Arrange for a ride, instead. When you get home, try to sleep. You should feel much better when you wake up. Apply heat to the back of your neck to relieve neck muscle spasm. Migraine headaches may respond best to an ice pack on the forehead or at the base of the skull. If you are having nausea or vomiting, follow a light diet until your headache is relieved. If you have a migraine type headache, use sunglasses when in the daylight or around bright indoor lighting until symptoms improve. Bright glaring light can worsen this kind of headache. Follow Up with your doctor if the headache is not better within the next 24 hours. If you have frequent headaches you should discuss a treatment plan with your primary care doctor. By being aware of the earliest signs of headache, and starting treatment right away, you may be able to stop the pain yourself. Get Prompt Medical Attention if any of the following occur: Worsening of your head pain or no improvement within 24 hours Repeated vomiting (unable to keep liquids down) Fever of 100.4F (38C) or higher, or as directed by your healthcare provider Stiff neck Extreme drowsiness, confusion or fainting Dizziness, vertigo (dizziness with spinning sensation) Weakness of an arm or leg or one side of the face Difficulty with speech or vision Bladder Infection,Female (Adult) A bladder infection ("cystitis" or "UTI") usually causes a constant urge to urinate and a burning when passing urine. Urine may be cloudy, smelly or dark. There may be pain in the lower abdomen. A bladder infection occurs when bacteria from the vaginal area enter the bladder opening (urethra). This can occur from sexual intercourse, wearing tight clothing, dehydration and other factors. Home Care: Drink lots of fluids (at least 6-8 glasses a day, unless you must restrict fluids for other medical reasons). This will force the medicine into your urinary system and flush the bacteria out of your body. Avoid sexual intercourse until your symptoms are gone. Avoid caffeine, alcohol and spicy foods. These can irritate the bladder. A bladder infection is treated with antibiotics. You may also be given Pyridium (generic = phenazopyridine) to reduce the burning sensation. This medicine will cause your urine to become a bright orange color. The orange urine may stain clothing. You may wear a pad or panty-liner to protect clothing. Preventing Future Infections: Always wipe from front to back after a bowel movement. Keep the genital area clean and dry. Drink plenty of fluids each day to avoid dehydration. Both sexual partners should wash before intercourse. Urinate right after intercourse to flush out the bladder. Wear cotton underwear and cotton-lined panty hose; avoid tight-fitting pants. If you are on control pills and are having frequent bladder infections, discuss with your doctor. Follow Up: Return to this facility or see your doctor if ALL symptoms are not gone after three days of treatment. Get Prompt Medical Attention if any of the following occur: Fever of 100.4F (38C) or higher, or as directed by your healthcare provider No improvement by the third day of treatment Increasing back or abdominal pain Repeated vomiting; unable to keep medicine down Weakness, dizziness or fainting Vaginal discharge Pain, redness or swelling in the labia (outer vaginal area) Blood In The Urine Blood in the urine ("hematuria") has many possible causes. If it occurs after an injury (such as a car accident or fall), it is most often a sign of bruising to the kidney or bladder. Common medical causes of blood in the urine include urinary tract infection, kidney stone, inflammation, tumors, or certain other diseases of the kidney or bladder. Menstruation can cause blood to appear in the urine sample, although it is not coming from the urinary tract. If only a trace amount of blood is present, it will show up on the urine test, even though the urine may be yellow and not pink or red. This may occur with any of the above conditions, as well as heavy exercise or high fever. In this case, your doctor may want to repeat the urine test on another day. This will show if the blood is still present. If so, then other tests can be done to find out the cause. Home Care: If your urine does not appear bloody (pink, brown or red) then you do not need to restrict your activity in any way. If you can see blood in your urine, rest and avoid heavy exertion until your next exam. Do not use aspirin or anti-inflammatory medicine like ibuprofen (Motrin, Advil) or naproxen (Naprosyn, Aleve). These thin the blood and may increase bleeding. Follow Up with your doctor or as advised by our staff. If you were injured and had blood in your urine, you should have a repeat urine test in 1-2 days. Contact your doctor or return to this facility for this test. [NOTE: A radiologist will review any X-rays that were taken. We will notify you of any new findings that may affect your care.] Get Prompt Medical Attention if any of the following occur: Bright red blood or blood clots in the urine (if a new symptom) Weakness, dizziness or fainting New groin, abdominal or back pain Fever of 100.4F (38C) or higher, or as directed by your healthcare provider Repeated vomiting Bleeding from nose, gums or easy bruising Nitrofurantoin, Nitrofurantoin, Macrocrystalline Oral capsule What is this medicine? NITROFURANTOIN (franco stanley dunog AN toyn) is an antibiotic. It is used to treat urinary tract infections. How should I use this medicine? Take this medicine by mouth with a glass of water. Follow the directions on the prescription label. Take this medicine with food or milk. Take your doses at regular intervals. Do not take your medicine more often than directed. Do not stop taking except on your doctor's advice. Talk to your reports analyst regarding the use of this medicine in children. While this drug may be prescribed for selected conditions, precautions do apply. What side effects may I notice from receiving this medicine? Side effects that you should report to your doctor or health residential care facility manager as soon as possible: allergic reactions like skin rash or hives, swelling of the face, lips, or tongue chest pain cough difficulty breathing dizziness, drowsiness fever or infection joint aches or pains pale or blue-tinted skin redness, blistering, peeling or loosening of the skin, including inside the mouth tingling, burning, pain, or numbness in hands or feet unusual bleeding or bruising unusually weak or tired yellowing of eyes or skin Side effects that usually do not require medical attention (report to your doctor or health residential care facility manager if they continue or are bothersome): dark urine diarrhea headache loss of appetite nausea or vomiting temporary hair loss What may interact with this medicine? antacids containing magnesium trisilicate probenecid quinolone antibiotics like ciprofloxacin, lomefloxacin, norfloxacin and ofloxacin sulfinpyrazone What if I miss a dose? If you miss a dose, take it as soon as you can. If it is almost time for your next dose, take only that dose. Do not take double or extra doses. Where should I keep my medicine? Keep out of the reach of children. Store at room temperature between 15 and 30 degrees C (59 and 86 degrees F). Protect from light. Throw away any unused medicine after the expiration date. What should I tell my health care provider before I take this medicine? They need to know if you have any of these conditions: anemia diabetes [id number] dehydrogenase deficiency kidney disease liver disease lung disease other chronic illness an unusual or allergic reaction to nitrofurantoin, other antibiotics, other medicines, foods, dyes or preservatives or trying to get breast-feeding What should I watch for while using this medicine? Tell your doctor or health residential care facility manager if your symptoms do not improve or if you get new symptoms. Drink several glasses of water a day. If you are taking this medicine for a long time, visit your doctor for regular checks on your progress. If you are diabetic, you may get a false positive result for sugar in your urine with certain brands of urine tests. Check with your doctor. You have been given the following additional information: Chest Pain, Uncertain Cause Headache, Unspecified Bladder Infection, Female (Adult) Hematuria Nitrofurantoin, Nitrofurantoin, Macrocrystalline Oral capsule (Electronically signed by Nahun Velasco Dr. 08/11/2016 16:59)
--- NOTE | 2016-08-11 17:00 | ED MED RECONCILIATION SUMMARY ---
Patient: AMARIS WALKER Medication Reconciliation Report [facility] VisitID: [id number] [address] [place] [address] 31y, F Registration Date/Time: 08/09/2016 Weight: 100.2 kg Height/Length: 63 in. BMI: 39.1 ALLERGIES: ADHESIVES, Penicillins The patient's Home Medications are listed below: CONTINUE TAKING THE FOLLOWING MEDICATIONS: ClonazePAM Oral Levothyroxine Sodium Oral Ranitidine HCl Oral The source(s) of the original Home Medication information: Not obtained. The following Medications were given to the patient in the Emergency Department: IV NS IV Fluids bolus 1000 mL wide open, administered: 08/09/2016 10:57:00 PM Zofran [IVP] IVP 4 mg, administered: 08/09/2016 11:03:00 PM Toradol [IVP] IVP 30 mg, administered: 08/09/2016 11:08:00 PM Nitrofurantoin [PO] PO 100 mg, administered: 08/10/2016 12:51:00 AM The following Medications were prescribed to the patient: Nitrofurantoin 100 mg: take 1 capsule orally every 12 hours for 5 days. No refill.(disp 10 caps) -- Nahun Velasco Dr.
== END 2016-08-10 01:03 | disposition home or self-care (01) ==
LOC: ED SRH 22:21
DX: R07.89 Other chest pain (principal); R51 Headache; N30.01 Acute cystitis with hematuria; Z79.899 Other long term (current) drug therapy; Z88.0 Allergy status to penicillin; Z91.048 Other nonmedicinal substance allergy status
CPT/HCPCS: 90004; 90100; 90469; 90616; 91556; 94060; 95059